=== PATIENT | female | born 1965 | race Caucasian/White ===

== ENCOUNTER 2021-05-31 16:03 | Outpatient (REF) | payer MEDICAID, SELFPAY ==
[2021-05-31 16:47] LABS: Basophils Absolute Auto 0.1 X10*3/uL (0.0-0.2); Eosinophils Absolute Auto 0.4 X10*3/uL (0.0-0.4); Eosinophils Percent Auto 4.1 % (0-4); Hematocrit 44.3 % (37-47); Hemoglobin 14.4 g/dl (12.0-16.0); Imm Gran Abs Auto 0.02 X10*3/uL (0.00-0.03); Imm Gran Pct Auto 0.2 % (0.0-0.4); Lymphocytes Absolute Auto 1.5 X10*3/uL (1.2-4.9); Lymphocytes Percent Auto 15.3 % (20-40); MANUAL DIFF FLAG NO; Mean Corpuscular HGB Conc 32.5 g/dl (31.0-35.0); Mean Corpuscular Hemoglobin 29.8 pg (27.0-33.0); Mean Corpuscular Volume 91.7 fL (80-98); Mean Platelet Volume 9.1 fL (9.4-12.3); Monocytes Absolute Auto 0.4 X10*3/uL (0.1-1.2); Monocytes Percent Auto 4.6 % (2-11); Neutrophils Absolute Auto 7.2 X10*3/uL (2.0-8.3); Neutrophils Percent Auto 74.8 % (45-73); Platelet Count 219 X10*3/uL (160-400); Red Blood Count 4.83 X10*6/uL (4.20-5.50); Red Cell Distribution Width 13.1 % (11.0-16.0); White Blood Count 9.6 X10*3/uL (4.8-10.8)
[2021-05-31 17:26] LABS: Anion Gap 13 (12-20); Blood Urea Nitrogen 18 mg/dL (9-16); Calcium 9.6 mg/dL (8.4-10.2); Carbon Dioxide 25 mmol/L (22-29); Chloride 109 mmol/L (96-108); Estimated Glomerular Filt Rate > 60; Glucose Random 131 mg/dL (60-115); Iron 48 mcg/dL (30-160); Potassium 4.1 mmol/L (3.3-5.1); Sodium 143 mmol/L (135-145)
[2021-05-31 17:38] LABS: Percent Iron Saturation 16 % (15-50); Total Iron Binding Capacity 305 mcg/dL (228-428); Unsaturated Iron Binding 257 ug/dL
[2021-05-31 17:42] LABS: Ferritin 20 ng/mL (10-250)
[2021-06-03 03:41] LABS: ~HepC Num1 0.09 S/CO (0.00-0.79); ~Hepatitis C Antibody Nonreactive (Nonreactive)
[2021-06-03 03:43] LABS: HIV AB/AG Nonreactive (Nonreactive)
== END 2021-05-31 16:04 | disposition home or self-care (01) ==
LOC: HO.LAB 16:03
PROVIDERS: PCP Internal Medicine; Visit Provider Internal Medicine
DX: Z11.4 Encounter for screening for human immunodeficiency virus [HIV] (principal); Z11.59 Encounter for screening for other viral diseases; T14.8XXA Other injury of unspecified body region, initial encounter
CPT/HCPCS: 36415; 80048; 82728; 83540; 85025; 86803; 87389

== ENCOUNTER 2021-08-23 12:23 | Emergency (ER) | payer MEDICAID, SELFPAY ==
--- NOTE | ~2021-08-23 | US_ITS ---
EXAMINATION: US VENOUS ULTRASOUND WITH DOPPLER LOWER EXTREMITY, LEFT CLINICAL INFORMATION: Calf pain. Rule out DVT. COMPARISON: None TECHNIQUE: Ultrasound of the deep veins is performed from the hip to the calf with compression sonography and color and pulse Doppler assessment. Spectral analysis with color-flow imaging is performed. FINDINGS: There is normal venous compression and respiratory variation and augmented flow. The visualized common femoral vein, superficial femoral vein, profunda femoral vein, popliteal vein, and the trifurcation region shows no evidence of deep venous thrombosis. There is no significant popliteal fossa cyst. US/US venous duplex LE LT IMPRESSION: No DVT demonstrated in the left lower extremity.
[2021-08-23 14:23] VITALS: BP 115/75; PULSE 69; RESP 18; TEMP 36.2; O2SAT 98; BMI 31.2
--- NOTE | 2021-08-23 14:38 | ED_ITS ---
HPI - Skin/Abscess/Foreign Bdy General Chief complaint: Skin/Abscess/Foreign Body Stated complaint: ?lt leg infection Time Seen by Provider: 08/23/21 14:38 History of Present Illness HPI narrative: Patient complains of a painful area that she believes is infected on the left lower leg where she had some poison shaheen and scratched it and now it is red and painful Related Data Previous Rx's Medication Instructions Recorded cephalexin 500 mg tablet 500 mg PO QID 7 Days #28 tab 08/23/21 mupirocin 2 % topical ointment 1 appl TOPICAL TID 5 Days #22 g 08/23/21 doxycycline hyclate 100 mg capsule 100 mg PO BID 7 Days #14 cap 08/27/21 Bacillus coagulans 800 million 800 cell PO DAILY #14 tab 08/28/21 cell tablet (Digestive Advantage Probiotics-Prebiotic) clindamycin HCl 150 mg capsule 150 mg PO QID 7 Days #28 cap 08/28/21 Allergies Allergy/AdvReac Type Severity Reaction Status Date / Time sulfamethoxazole AdvReac Mild DIARRHEA Verified 08/27/21 07:15 [From Bactrim] trimethoprim [From Bactrim] AdvReac Mild DIARRHEA Verified 08/27/21 07:15 cyclobenzaprine [Flexeril] AdvReac Unknown Fatigued Verified 08/27/21 07:15 ibuprofen [Motrin] AdvReac Unknown Stomach Verified 08/27/21 07:15 Upset Sulfa (Sulfonamide AdvReac Unknown Diarrhea Verified 08/27/21 07:15 Antibiotics) From Darvocet-N 100 Allergy Severe TONGUE Uncoded 08/27/21 07:15 SWELLED Darvocet A500 Allergy Unknown Angioedema Uncoded 08/27/21 07:15 From FLEXERIL AdvReac Intermediate IMMOBILITY Uncoded 08/27/21 07:15 OF LIMBS Review of Systems Review of Systems: Patient complains of red painful area on left lower leg Negatives are no fever no chills no dizziness weakness no headache no neck pain no chest pain no abdominal pain no joint pain PMFSH Past Medical History Source: nursing notes reviewed Medical History COPD (chronic obstructive pulmonary disease) Substance abuse Social History Social History Alcohol intake: never Patient Tobacco Use Status: Current everyday Tobacco user Advance Directives: No Advance Directives Information Provided: Yes Physical Exam Vital Signs: Vital Signs: Last Vital Signs Temp 97.1 F 08/23/21 14:23 Pulse 69 08/23/21 14:23 Resp 18 08/23/21 14:23 BP 115/75 08/23/21 14:23 Pulse Ox 98 08/23/21 14:23 Body Mass Index 31.2 General appearance no acute distress Head is normocephalic atraumatic Neck is supple Chest clear to auscultation bilateral Extremities is full range of motion x4 Skin exam the left lower leg has an area of redness warmth and tenderness with no lymphangitis, no fluctuance no discharge from the wound, there is also ten derness in the back of the leg but again no significant swelling and neurovascular intact distal Other extremities normal Neuro no focal motor sensory deficits Course Course Course Narrative: Ultrasound was negative and was done because she had some pain in the posterior leg so no DVT, the localized infection of the left lower leg consistent with cellulitis is treated with Keflex and mupirocin Discharge Plan Discharge Clinical Impression: Cellulitis Patient Disposition: Home, Self-Care Additional Instructions: Use antibiotic Keflex and mupirocin antibiotic cream as directed Return to ER or follow with her doctor in 3 days if not improved Return any time any worse condition or any concerns, especially spreading redness worse pain and swelling fever any sign of worsening infection The ultrasound was normal with no sign of blood clot Prescriptions: New cephalexin 500 mg tablet 500 mg PO QID 7 Days Qty: 28 RF: 0 mupirocin 2 % ointment 1 appl topical TID 5 Days Qty: 22 RF: 0 No Action doxycycline hyclate 100 mg capsule 100 mg PO BID 7 Days Qty: 14 RF: 0 clindamycin HCl 150 mg capsule 150 mg PO QID 7 Days Qty: 28 RF: 0 Digestive Advantage Probio-Pre 800 million cell tablet 800 cell PO DAILY Qty: 14 RF: 0 Interventions: ED Discharge Assessment Last Done: 08/23/21 16:06 Discharge Date/Time: 08/23/21 16:07
[2021-08-23] MEDS: cephALEXin 500 MG CAPSULE PO (15:01)
[2021-08-23] MEDS: Diphth,Pertus(ACell),Tet Adult 0.5 ML SYRINGE IM (15:02)
== END 2021-08-23 16:07 | disposition home or self-care (01) ==
PROVIDERS: Emergency Provider Emergency Medicine
DX: L03.116 Cellulitis of left lower limb (principal); M79.605 Pain in left leg; J44.9 Chronic obstructive pulmonary disease, unspecified
CPT/HCPCS: 90715; 93971; 99283; 99284

== ENCOUNTER 2021-08-27 06:52 | Emergency (ER) | payer MEDICAID, SELFPAY ==
[2021-08-27 07:07] VITALS: BP 126/75; PULSE 69; RESP 17; TEMP 36.6; O2SAT 97; BMI 29.8
--- NOTE | 2021-08-27 08:04 | ED_ITS ---
HPI - Skin/Abscess/Foreign Bdy General Chief complaint: Skin/Abscess/Foreign Body Stated complaint: leg infection Time Seen by Provider: 08/27/21 08:02 Source: patient and old records reviewed Mode of arrival: ambulatory Limitations: no limitations History of Present Illness HPI narrative: seen on 08/23 started on keflex - neg DVT study complaint: abscess/boil and lesion Onset (ago): day(s) (several ) Tetanus up to date: yes Location: LLE Severity: moderate Quality: burning and aching Pain Consistency: intermittent Relieving factors: none Exacerbating factors: palpation Context: other (?poison shaheen) Associated symptoms: denies other symptoms Treatments prior to arrival: antibiotic (tried to drain at home on keflex since 08/23 neg DVT study) Related Data Previous Rx's Medication Instructions Recorded cephalexin 500 mg tablet 500 mg PO QID 7 Days #28 tab 08/23/21 mupirocin 2 % topical ointment 1 appl TOPICAL TID 5 Days #22 g 08/23/21 doxycycline hyclate 100 mg capsule 100 mg PO BID 7 Days #14 cap 08/27/21 Allergies Allergy/AdvReac Type Severity Reaction Status Date / Time sulfamethoxazole AdvReac Mild DIARRHEA Verified 08/27/21 07:15 [From Bactrim] trimethoprim [From Bactrim] AdvReac Mild DIARRHEA Verified 08/27/21 07:15 cyclobenzaprine [Flexeril] AdvReac Unknown Fatigued Verified 08/27/21 07:15 ibuprofen [Motrin] AdvReac Unknown Stomach Verified 08/27/21 07:15 Upset Sulfa (Sulfonamide AdvReac Unknown Diarrhea Verified 08/27/21 07:15 Antibiotics) From Darvocet-N 100 Allergy Severe TONGUE Uncoded 08/27/21 07:15 SWELLED Darvocet A500 Allergy Unknown Angioedema Uncoded 08/27/21 07:15 From FLEXERIL AdvReac Intermediate IMMOBILITY Uncoded 08/27/21 07:15 OF LIMBS Review of Systems Review of Systems: Constitutional : No Fever, No Chills ENT/Mouth : No sore throat, No Rhinorrhea Eyes: No Eye Pain, No Swelling, No Redness Cardiovascular : No Chest Pain, No SOB Respiratory : No Cough, No Sputum Gastrointestinal : No Nausea, No Vomiting, No Diarrhea, No abdominal Pain Genitourinary : No Dysuria, No Hematuria Musculoskeletal : No joint pain, No Myalgias, No Joint Swelling Skin : No Skin Lesions, positive skin rash Neuro : No Weakness, No Numbness, No Headache Psych : No Anxiety, No Depression Heme/Lymph: No Bruising, No Bleeding,No Lymphadenopathy Endocrine : No Polyuria, No Polydipsia All other systems reviewed and are negative [facility] Past Medical History Attestation statement: The following information was validated with the patient. Medical History COPD (chronic obstructive pulmonary disease) Substance abuse Social History Social History Alcohol intake: never Patient Tobacco Use Status: Current everyday Tobacco user Use of substances other than those prescribed or required for medical reasons: No Advance Directives: No Patient : No Physical Exam Vital Signs: Vital Signs: Last Vital Signs Temp 97.9 F 08/27/21 07:07 Pulse 69 08/27/21 07:07 Resp 17 08/27/21 07:07 BP 126/75 08/27/21 07:07 Pulse Ox 98 08/27/21 08:06 Body Mass Index 29.8 Appearance: Alert. Oriented X3. No acute distress. Eyes: Pupils equal, round and reactive to light. ENT: Pharynx normal. Neck: Normal inspection. Neck supple. CVS: Pulses normal. Respiratory: No respiratory distress. Abdomen: Soft and nontender. Skin: Skin warm and dry. Normal skin color. LLE medial aspect eschar noted small fluctuance 1-2 non draining area with 4cm surrounding warm pink area no extension no lymphadenitis no swelling NV intact distally, compartments soft and compressible Extremities: No lower extremity edema. Neuro: Oriented X 3. No motor deficit. No sensory deficit. MDM - Skin/Abscess/Foreign Bdy MDM Narrative Medical decision making narrative: 56 yo female with hidradenitis here with LLE abscess and cellulitis without systemic symptoms refusing drainage - will start on doxy and refer to PCP, alert and oriented x 3. Discharge Plan Discharge Clinical Impression: Cellulitis, Abscess of skin or subcutaneous tissue Patient Disposition: Home, Self-Care Instructions: Cellulitis (ED), Abscess (ED) Additional Instructions: return to ED for any worsening symptoms or concerns you refused incision and drainage - this may worsen without drainage. this is not recommended. if this worsens please return at any time continue cephalexin Prescriptions: New doxycycline hyclate 100 mg capsule 100 mg PO BID 7 Days Qty: 14 RF: 0 No Action cephalexin 500 mg tablet 500 mg PO QID 7 Days Qty: 28 RF: 0 mupirocin 2 % ointment 1 appl topical TID 5 Days Qty: 22 RF: 0 Stand Alone Forms: Work/School Release
[2021-08-27 08:06] VITALS: O2SAT 98
== END 2021-08-27 08:31 | disposition home or self-care (01) ==
PROVIDERS: Emergency Provider Emergency Medicine; PCP Internal Medicine
DX: L03.116 Cellulitis of left lower limb (principal); F17.200 Nicotine dependence, unspecified, uncomplicated; Z71.6 Tobacco abuse counseling; Z79.899 Other long term (current) drug therapy
CPT/HCPCS: 99283; 99284

== ENCOUNTER 2021-08-28 18:15 | Emergency (ER) | payer MEDICAID, SELFPAY ==
[2021-08-28 18:32] VITALS: BP 184/78; PULSE 58; RESP 18; TEMP 37.4; O2SAT 99; BMI 31.6
--- NOTE | 2021-08-28 23:15 | ED.WOUNDLAC ---
HPI - Wound/Laceration General Chief Complaint: Wound/Laceration Stated Complaint: dr. millan states high bp,leg infection Time Seen by Provider: 08/28/21 23:01 Source: patient Mode of arrival: ambulatory Limitations: no limitations History of Present Illness HPI narrative: Patient comes emergency room complaining of an abscess in her left lower extremity. Patient was seen here yesterday, patient declined I&D. Patient was sent home with doxycycline in addition to cephalexin that patient was taking. Patient states that the doxycycline is making her feel very nauseous and no longer wants to take it. Patient was seen by her primary care physician today, since the abscess actually got bigger, patient is now agreeable to have it drained. Related Data Previous Rx's Medication Instructions Recorded cephalexin 500 mg tablet 500 mg PO QID 7 Days #28 tab 08/23/21 mupirocin 2 % topical ointment 1 appl TOPICAL TID 5 Days #22 g 08/23/21 doxycycline hyclate 100 mg capsule 100 mg PO BID 7 Days #14 cap 08/27/21 Bacillus coagulans 800 million 800 cell PO DAILY #14 tab 08/28/21 cell tablet (Digestive Advantage Probiotics-Prebiotic) clindamycin HCl 150 mg capsule 150 mg PO QID 7 Days #28 cap 08/28/21 Allergies Allergy/AdvReac Type Severity Reaction Status Date / Time sulfamethoxazole AdvReac Mild DIARRHEA Verified 08/27/21 07:15 [From Bactrim] trimethoprim [From Bactrim] AdvReac Mild DIARRHEA Verified 08/27/21 07:15 cyclobenzaprine [Flexeril] AdvReac Unknown Fatigued Verified 08/27/21 07:15 ibuprofen [Motrin] AdvReac Unknown Stomach Verified 08/27/21 07:15 Upset Sulfa (Sulfonamide AdvReac Unknown Diarrhea Verified 08/27/21 07:15 Antibiotics) From Darvocet-N 100 Allergy Severe TONGUE Uncoded 08/27/21 07:15 SWELLED Darvocet A500 Allergy Unknown Angioedema Uncoded 08/27/21 07:15 From FLEXERIL AdvReac Intermediate IMMOBILITY Uncoded 08/27/21 07:15 OF LIMBS Review of Systems Review of Systems: Constitutional : No Weight loss, complaining of subjective fever and chills. No Night Sweats, No Fatigue, No Malaise ENT/Mouth : No Hearing loss, No Ear Pain, No Nasal Congestion, No Sinus Pain, No Hoarseness, No sore throat, No Rhinorrhea, No Swallowing Difficulty Eyes: No Eye Pain, No Swelling, No Redness, No Foreign Body, No Discharge, No Vision Changes Cardiovascular : No Chest Pain, No SOB, No Dyspnea on Exertion, No Orthopnea, No Edema, No Palpitations Respiratory : No Cough, No Sputum, No Wheezing, No Smoke Exposure, No Dyspnea Gastrointestinal : No Nausea, No Vomiting, No Diarrhea, No Constipation, No abdominal Pain, No Hematochezia, No Melena Genitourinary : no irregular bleeding, No Dysuria, No Urinary Frequency, No Hematuria, No Urinary Incontinence, No Urgency, No Flank Pain, No Urinary Flow Changes, No Hesitancy Musculoskeletal : No joint pain, No Myalgias, No Joint Swelling Skin : Complaining of multiple healing skin lesions secondary to poison shaheen. Abscess in the left lower extremity. Neuro : No Weakness, No Numbness, No Paresthesias, No Loss of Consciousness, No Dizziness, No Headache Psych : No Anxiety/Panic, No Depression, No SI/HI/AH/VH, No Social Issues, Heme/Lymph: No Bruising, No Bleeding,No Lymphadenopathy Endocrine : No Polyuria, No Polydipsia, No Temperature Intolerance PMFSH Past Medical History Medical History COPD (chronic obstructive pulmonary disease) Substance abuse Social History Social History Alcohol intake: never Patient Tobacco Use Status: Current everyday Tobacco user Advance Directives: No Advance Directives Information Provided: Yes Physical Exam Vital Signs: Vital Signs: Last Vital Signs Temp 99.3 F 08/28/21 18:32 Pulse 58 08/28/21 18:32 Resp 18 08/28/21 18:32 BP 184/78 H 08/28/21 18:32 Pulse Ox 99 08/28/21 18:32 Body Mass Index 31.6 Const: Other: Appearance: Alert. Oriented X3. No acute distress. Eyes: Pupils equal, round and reactive to light. ENT: Pharynx normal. Neck: Normal inspection. Neck supple. No lymph nodes noted. No crepitus CVS: Normal heart rate and rhythm. Pulses normal. Normal S1 and S2 Respiratory: No respiratory distress. Breath sounds normal. No Wheezing. No rales Abdomen: Soft and nontender. No rigidity. No distention. good BS x4 Skin: Skin warm and dry. Multiple healing skin lesions from poison shaheen in upper and lower extremities, multiple excoriations. See extremity below Extremities: No lower extremity edema. Abscess in the medial aspect of the distal left lower extremity, warmth to touch, erythematous. Bedside ultrasound shows an abscess that is approximately 1 cm deep Neuro: Oriented X 3. No motor deficit. No sensory deficit. Moving all extermities. No slurred speech. Course Course Course Narrative: I discussed with the patient that we need to lift up the eschar, and likely do an I&D. Patient states that she agrees to the procedure, she does not want lidocaine. After the I&D, patient states that she feels much better. Declined IV antibiotics. Agree to switch her antibiotics clean the/Keflex to clindamycin. Patient allergic to sulfas. Patient tolerated well the procedure. Patient declined packing. Patient states that she has a follow-up appointment tomorrow with her primary care physician. Procedures Abscess I/D Site: lower extremity Side (if applicable): left Technique: incised with blade and ultrasound guided Amount of fluid expressed (mL): 3 Packing used?: none Discharge Plan Discharge Clinical Impression: Abscess Patient Disposition: Home, Self-Care Instructions: Abscess (ED) Additional Instructions: Please follow-up with your primary care physician tomorrow. If you have any worsening or new symptoms, please return to the emergency room or call 911 Prescriptions: New clindamycin HCl 150 mg capsule 150 mg PO QID 7 Days Qty: 28 RF: 0 Digestive Advantage Probio-Pre 800 million cell tablet 800 cell PO DAILY Qty: 14 RF: 0 No Action cephalexin 500 mg tablet 500 mg PO QID 7 Days Qty: 28 RF: 0 mupirocin 2 % ointment 1 appl topical TID 5 Days Qty: 22 RF: 0 doxycycline hyclate 100 mg capsule 100 mg PO BID 7 Days Qty: 14 RF: 0
[2021-08-29] MEDS: Clindamycin HCL 300 MG CAPSULE PO (00:05)
[2021-08-29] MEDS: Lidocaine HCl 2 % MPF 5 ML VIAL INFILTRATI (00:05)
== END 2021-08-29 00:09 | disposition home or self-care (01) ==
PROVIDERS: Emergency Provider Emergency Medicine; PCP Emergency Medicine
DX: L02.416 Cutaneous abscess of left lower limb (principal); J44.9 Chronic obstructive pulmonary disease, unspecified
CPT/HCPCS: 10060; 96365; 99282; 99284

== ENCOUNTER 2022-02-10 00:31 | Emergency (ER) | payer MEDICAID, SELFPAY ==
--- NOTE | 2022-02-10 01:24 | ECG_ITS ---
Test Reason : EPIGASTRIC PAIN Blood Pressure : / mmHG Vent. Rate : 054 BPM Atrial Rate : 054 BPM P-R Int : 158 ms QRS Dur : 096 ms QT Int : 432 ms P-R-T Axes : 027 055 005 degrees QTc Int : 409 ms Sinus bradycardia Otherwise normal ECG When compared with ECG of 03-APR-2015 15:58, Nonspecific T wave abnormality no longer evident in Anterior leads Referred By: Carol Gutierrez Electronically Signed By:MIKE BNONER MD
[2022-02-10 01:25] VITALS: BP 162/88; PULSE 55; RESP 20; TEMP 36.7; O2SAT 98; BMI 30.9
[2022-02-10 02:00] LABS: MANUAL DIFF FLAG NO
[2022-02-10 02:01] LABS: Basophils Absolute Auto 0.1 X10*3/uL (0.0-0.2); Basophils Percent Auto 0.8 % (0-2); Eosinophils Absolute Auto 0.5 X10*3/uL (0.0-0.4); Eosinophils Percent Auto 5.1 % (0-4); Hematocrit 42.8 % (37.0-47.0); Hemoglobin 14.2 g/dl (12.0-16.0); Imm Gran Abs Auto 0.02 X10*3/uL (0.00-0.03); Imm Gran Pct Auto 0.2 % (0.0-0.4); Lymphocytes Absolute Auto 2.9 X10*3/uL (1.2-4.9); Lymphocytes Percent Auto 30.5 % (20-40); Mean Corpuscular HGB Conc 33.2 g/dl (31.0-35.0); Mean Corpuscular Hemoglobin 30.2 pg (27.0-33.0); Mean Corpuscular Volume 91.1 fL (80.0-98.0); Mean Platelet Volume 8.9 fL (9.4-12.3); Monocytes Absolute Auto 0.8 X10*3/uL (0.1-1.2); Monocytes Percent Auto 8.5 % (2-11); Neutrophils Absolute Auto 5.1 x10*3/uL (2.0-8.3); Neutrophils Percent Auto 54.9 % (45-73); Platelet Count 239 X10*3/uL (160-400); Red Cell Distribution Width 13.2 % (11.0-16.0); White Blood Count 9.3 X10*3/uL (4.8-10.8)
[2022-02-10 02:01] LABS: Appearance Urine CLEAR; Color Urine YELLOW; Glucose Urine UA NEG (NEG); Leukocyte Esterase Urine NEG (NEG); Nitrite Urine NEG (NEG); PH 5.5 (5.0-8.0); Urine Blood NEG (NEG); Urine Ketones NEG (NEG); Urine Protein NEG (NEG-TRACE)
[2022-02-10 02:18] LABS: Alanine Aminotransferase 17 U/L (0-31); Albumin Level 4.1 g/dL (3.5-5.0); Alkaline Phosphatase 89 U/L (39-117); Anion Gap 17 (12-20); Aspartate Amino Transferase 15 U/L (5-31); Bilirubin Total 0.2 mg/dL (0.0-1.0); Blood Urea Nitrogen 17 mg/dL (9-16); Calcium 9.7 mg/dL (8.4-10.2); Carbon Dioxide 21 mmol/L (22-29); Chloride 109 mmol/L (96-108); Creatinine Clr Calc Pharmacy 91.8; Estimated Glomerular Filt Rate > 60; Glucose Random 93 mg/dL (60-115); Lipase 17 U/L (8-78); Potassium 3.8 mmol/L (3.3-5.1); Sodium 143 mmol/L (135-145); Total Protein 6.4 g/dL (6.5-8.0)
--- NOTE | 2022-02-10 02:41 | ED_ITS ---
HPI - Abdominal Pain General Chief Complaint: Abdominal Pain Stated Complaint: stomach ulcer pain; med refill Time Seen by Provider: 02/10/22 01:24 Related Data Previous Rx's Medication Instructions Recorded cephalexin 500 mg tablet 500 mg PO QID 7 Days #28 tab 08/23/21 mupirocin 2 % topical ointment 1 appl TOPICAL TID 5 Days #22 g 08/23/21 doxycycline hyclate 100 mg capsule 100 mg PO BID 7 Days #14 cap 08/27/21 Bacillus coagulans 800 million 800 cell PO DAILY #14 tab 08/28/21 cell tablet (Digestive Advantage Probiotics-Prebiotic) clindamycin HCl 150 mg capsule 150 mg PO QID 7 Days #28 cap 08/28/21 Allergies Allergy/AdvReac Type Severity Reaction Status Date / Time sulfamethoxazole AdvReac Mild DIARRHEA Verified 02/10/22 01:25 [From Bactrim] trimethoprim [From Bactrim] AdvReac Mild DIARRHEA Verified 02/10/22 01:25 cyclobenzaprine [Flexeril] AdvReac Unknown Fatigued Verified 02/10/22 01:25 ibuprofen [Motrin] AdvReac Unknown Stomach Verified 02/10/22 01:25 Upset Sulfa (Sulfonamide AdvReac Unknown Diarrhea Verified 02/10/22 01:25 Antibiotics) From Darvocet-N 100 Allergy Severe TONGUE Uncoded 02/10/22 01:25 SWELLED Darvocet A500 Allergy Unknown Angioedema Uncoded 02/10/22 01:25 From FLEXERIL AdvReac Intermediate IMMOBILITY Uncoded 02/10/22 01:25 OF LIMBS PMFSH Past Medical History Medical History COPD (chronic obstructive pulmonary disease) Substance abuse Social History Social History Alcohol intake: never Patient Tobacco Use Status: Current everyday Tobacco user Advance Directives: No Physical Exam ED Vital Signs: Vital Signs - 24 hr 02/10/22 01:25 Temperature 98.1 F Pulse Rate 55 Respiratory Rate 20 Blood Pressure 162/88 H Pulse Oximetry 98 BMI result Body Mass Index 30.9 MDM - Abdominal Pain Lab Data Result diagrams: 02/10/22 01:52 02/10/22 01:52 Labs: Lab Results 02/10/22 02/10/2202/10/22 Range/Units 01:52 01:52 01:56 WBC 9.3 (4.8-10.8) X10*3/uL RBC 4.70 (4.20-5.50) X10*6/uL Hgb 14.2 (12.0-16.0) g/dl Hct 42.8 (37.0-47.0) % MCV 91.1 (80.0-98.0) fL MCH 30.2 (27.0-33.0) pg MCHC 33.2 (31.0-35.0) g/dl RDW 13.2 (11.0-16.0) % Plt Count 239 (160-400) X10*3/uL MPV 8.9 L (9.4-12.3) fL Immature Gran % (Auto) 0.2 (0.0-0.4) % Neut % (Auto) 54.9 (45-73) % Lymph % (Auto) 30.5 (20-40) % [place] % (Auto) 8.5 (2-11) % Eos % (Auto) 5.1 H (0-4) % Baso % (Auto) 0.8 (0-2) % Lymph # (Auto) 2.9 (1.2-4.9) X10*3/uL [place] # (Auto) 0.8 (0.1-1.2) X10*3/uL Eos # (Auto) 0.5 H (0.0-0.4) X10*3/uL Baso # (Auto) 0.1 (0.0-0.2) X10*3/uL Abs Immat Gran (auto) 0.02 (0.00-0.03) X10*3/uL Absolute Neuts (auto) 5.1 (2.0-8.3) x10*3/uL Absolute Nucleated RBC 0.000 (0.0-0.012) X10*3/uL Nucleated RBC % (auto) 0.0 (0.0-0.2) /100WBC Sodium 143 (135-145) mmol/L Potassium 3.8 (3.3-5.1) mmol/L Chloride 109 H (96-108) mmol/L Carbon Dioxide 21 L (22-29) mmol/L Anion Gap 17 (12-20) BUN 17 H (9-16) mg/dL Creatinine 0.69 (0.5-1.4) mg/dL Estim Creat Clear Calc 91.8 Estimated GFR > 60 Random Glucose 93 (60-115) mg/dL Calcium 9.7 (8.4-10.2) mg/dL Total Bilirubin 0.2 (0.0-1.0) mg/dL AST 15 (5-31) U/L ALT 17 (0-31) U/L Alkaline Phosphatase 89 (39-117) U/L Total Protein 6.4 L (6.5-8.0) g/dL Albumin 4.1 (3.5-5.0) g/dL Lipase 17 (8-78) U/L Urine Color YELLOW Urine Appearance CLEAR Urine pH 5.5 (5.0-8.0) Ur Specific [place] 1.020 (1.005-1.025) Urine Protein NEG (NEG-TRACE) MG/DL Urine Glucose (UA) NEG (NEG) MG/DL Urine Ketones NEG (NEG) MG/DL Urine Blood NEG (NEG) Urine Nitrite NEG (NEG) Ur Leukocyte Esterase NEG (NEG) Discharge Plan Discharge Prescriptions: No Action cephalexin 500 mg tablet 500 mg PO QID 7 Days Qty: 28 0RF mupirocin 2 % ointment 1 appl topical TID 5 Days Qty: 22 0RF doxycycline hyclate 100 mg capsule 100 mg PO BID 7 Days Qty: 14 0RF clindamycin HCl 150 mg capsule 150 mg PO QID 7 Days Qty: 28 0RF Digestive Advantage Probio-Pre 800 million cell tablet 800 cell PO DAILY Qty: 14 0RF
[2022-02-10] MEDS: Omeprazole 20 MG CAPSULE.DR PO (03:11)
== END 2022-02-10 04:25 | disposition left against medical advice (07) ==
PROVIDERS: Emergency Provider Student in an Organized Health Care Education/Training Program; PCP Internal Medicine
DX: K25.9 Gastric ulcer, unspecified as acute or chronic, without hemorrhage or perforation (principal); R10.13 Epigastric pain; R00.1 Bradycardia, unspecified; Z79.899 Other long term (current) drug therapy
CPT/HCPCS: 36415; 80053; 81003; 83690; 85025; 93005; 99283

== ENCOUNTER 2023-04-17 21:55 | Emergency (ER) | payer MEDICAID, SELFPAY ==
[2023-04-17 23:21] VITALS: BP 151/91; PULSE 74; RESP 18; TEMP 36.6; O2SAT 99; BMI 23.2
== END 2023-04-17 23:48 | disposition left against medical advice (07) ==
PROVIDERS: Emergency Provider Emergency Medicine; PCP Internal Medicine
DX: R09.81 Nasal congestion (principal)
CPT/HCPCS: 99281

== ENCOUNTER 2023-07-16 17:53 | Outpatient (REF) | payer MEDICAID, SELFPAY ==
[2023-07-16 18:58] LABS: Influenza A PCR NEGATIVE (Negative); Influenza B PCR NEGATIVE (Negative); Resp Syncy Virus RNA Qual PCR NEGATIVE (Negative); SARS COV2 PCR INHOUSE NEGATIVE (Negative)
== END 2023-07-16 17:54 | disposition home or self-care (01) ==
LOC: HO.HHCLNP 17:53
PROVIDERS: Visit Provider Family Medicine
DX: J06.9 Acute upper respiratory infection, unspecified (principal); Z20.822 Contact with and (suspected) exposure to COVID-19
CPT/HCPCS: 0241U

== ENCOUNTER 2023-07-21 13:13 | Outpatient (REF) | payer MEDICAID, SELFPAY ==
--- NOTE | ~2023-07-21 | XR_ITS ---
EXAMINATION: XR CHEST CLINICAL INFORMATION: 7 day duration of cough Chest pain, cough, shortness of breath COMPARISON: Chest 12/04/2015 TECHNIQUE: 2 views of the chest were obtained. FINDINGS: No significant abnormality is noted involving the heart, lungs, mediastinum or soft tissues. Thoracolumbar scoliosis is noted. XR/XR chest 2V IMPRESSION: No acute cardiopulmonary disease.
== END 2023-07-21 13:14 | disposition home or self-care (01) ==
LOC: HO.XRAY 13:13
PROVIDERS: PCP Internal Medicine; Visit Provider Family Medicine
DX: J06.9 Acute upper respiratory infection, unspecified (principal)
CPT/HCPCS: 71046

== ENCOUNTER 2024-10-18 12:15 | Outpatient (REF) | payer MEDICAID, SELFPAY ==
--- NOTE | ~2024-10-18 | XR_ITS ---
EXAMINATION: XR CHEST CLINICAL INFORMATION: cough and SOB, COVID+, r/o PNA COMPARISON: Most recent chest radiograph dated 07/21/2023. TECHNIQUE: 2 views of the chest were obtained. FINDINGS: The lungs are clear. The cardiomediastinal silhouette is normal in size. There is no pleural effusion or pneumothorax. No acute osseous abnormality. XR/XR chest 2V IMPRESSION: No acute cardiopulmonary findings. Electronically signed by: Rusty Lara MD 10/18/2024 04:26 PM [facility]
== END 2024-10-18 12:16 | disposition home or self-care (01) ==
LOC: HO.HHCX 12:15
PROVIDERS: Visit Provider Family Medicine
DX: U07.1 COVID-19 (principal); R05.9 Cough, unspecified; R06.02 Shortness of breath
CPT/HCPCS: 71046

== ENCOUNTER 2024-11-15 10:34 | Outpatient (REF) | payer MEDICAID, SELFPAY ==
--- NOTE | ~2024-11-15 | XR_ITS ---
EXAMINATION: XR CHEST CLINICAL INFORMATION: worseining cough and congestion in pt with COPD COMPARISON: 10/18/2024. 07/21/2023. TECHNIQUE: 2 views of the chest were obtained. FINDINGS: The cardiac, hilar, and mediastinal contours are normal. The lungs are clear bilaterally. There is no pneumothorax or pleural effusion. There is no focal osseous or soft tissue abnormality. There are spinal degenerative changes with a levoconvex lumbar scoliosis. XR/XR chest 2V IMPRESSION: No active pulmonary disease. Electronically signed by: Buck Shaver MD 11/15/2024 12:03 PM REVA
--- OUTSIDE RECORDS SUMMARY | 2024-11-15 11:56 | XMS_ITS | Encounter Summary ---
Author Organization [employer] Address [address] [place] [address] Care Team Providers Care Stereotype Caster Name Role Phone Minerva Gputa MD Primary Care Provider [phone] Reason for Visit * Reason Comments Cough Encounter Details Date Type Department Care Team ([facility] st Contact Info) Description 11/15/2024 10:40 AM EST Office Visit [facility] [address] [place], [place] [id number] COPD exacerbation (CMS/HCC) (Primary Dx); Cough in adult patient Social History Tobacco Use Types Packs/Day Years Used Date Smoking Tobacco: Every Day Cigarettes Cigars Passive Smoke Exposure: Current Smokeless Tobacco: Never Depression Answer Date Recorded Patient Health Questionnaire-9 Score 0 10/16/2023 Patient Health Questionnaire-9 Score 0 10/16/2023 Last PHQ-9: Questionnaire Data Not on file 1 12/17/2022 Housing Stability Answer Date Recorded What is your housing situation today? I have housing today, but I am worried about losing housing in the future 12/01/[address] you li ve. Do you have problems with any of the following? Water leaks;Pests such as bugs, ants, or mice 12/01/2023 Food Insecurity Answer Date Recorded Within the past 12 months, y ou worried that your food would run out before you got money to buy more: Often true 12/01/2023 Within the past 12 months,th e food you bought just didn't last and you didn't have enough money to get more: Often true 03/2024 Transportation Answer Date Recorded In the past 12 months, has l ack of transportation kept you from medical appts, meetings, work or from getting things needed for daily living? No 08/12/2023 Utilities Answer Date Recorded In the past 12 months, has t he electric, gas, oil or water company threatened to shut off services in your home? No 08/12/2023 Depression Answer Date Recorded Patient Health Questionnaire-2 Score 0 10/16/2023 Comments Unknown Sex and Gender Information Value Date Recorded Sex Assigned at Female 08/25/2022 10:17 AM EDT Legal Sex Female 10:17 AM EDT Gender Identity Female 08/25/2022 10:17 AM EDT Sexual Orientation Straight 08/25/2022 10 :17 AM EDT documented as of this encounter Last Filed Vital Signs Vital Sign Reading Time Taken Comments Blood Pressure 147/89 11/15/2024 10:13 AM EST Pulse 69 11/15/2024 10:13 AM EST Temperature 36.7 ??C (98.1 ??F) 11/15/2024 10:[address] Respiratory Rate 18 11/15/2024 10:13 AM EST Oxygen Saturation 98% 11/15/2024 10:13 AM EST Inhaled Oxygen Concentration - - Weight 68 kg (150 lb) 11/15/2024 10:13 AM EST Height - - Body Mass Index 26.57 10/18/2024 11:35 AM EST documented in this encounter Miscellaneous Notes * Assessment & Plan Note - Columba Archibald MA - 11/15/2024 10:49 AM EST Associated Problem(s): Cough in adult patient - Ordered XR Chest 2 Views 11/15/24 - ER precautions discussed. 11/15/24 - Seek medical attention for worsening symptoms. 11/15/24 * Assessment & Plan Note - Columba Archibald MA - 11/15/2024 10:38 AM EST Associated Problem(s): COPD exacerbation (CMS/HCC) - Prescribed predniSONE (Deltasone) 20 MG tablet 11/15/24 - ER precautions discussed. 11/15/24 - Seek medical attention for worsening symptoms. 11/15/24 documented in this encounter Plan of Treatment Scheduled Orders Name Type Priority Associated Diagnoses Orde r Schedule XR Chest 2 Views Imaging Routine Cough in adult patient Expected: 11/15/2024, Expires: 11/15/2025 documented as of this encounter Procedures Procedure Name Priority Date/Time Associated Diagnosis Comments POCT INFLUENZA B (ID NOW RAPID MOLECULAR) Routine 11/15/2024 10:16 AM EST Cough in adult patient POCT INFLUENZA A (ID NOW RAPID MOLECULAR) Routine 11/15/2024 10:16 AM EST Cough in adult patient POCT RAPID COVID ANTIGEN Routine 11/15/2024 10:15 AM EST Cough in adult patient documented in this encounter Results * Influenza B (ID NOW Rapid Molecular) (11/15/2024 10:16 AM EST) [facility] Influenza B Negative Negative, Indeterminate [facility] Swab 11/15/2024 10:1 6 AM EST Anastasia Worthington MD POINT OF CARE TEST ENTER/E DIT ORDERABLES Final Result Performing Organization Address [facility] Co de Phone Number [facility] [address] [place] [phone] * Influenza A (ID NOW Rapid Molecular) (11/15/2024 10:16 AM EST) [facility] Influenza A Negative Negative, Indeterminate [facility] Swab 11/15/2024 10:1 6 AM EST Anastasia Worthington MD POINT OF CARE TEST ENTER/E DIT ORDERABLES Final Result Performing Organization Address [facility] Co de Phone Number [facility] [address] [place] [phone] * POCT Rapid COVID Ag (11/15/2024 10:15 AM EST) Rapid COVID Ag Negative Swab 11/15/2024 10:1 5 AM EST Anastasia Worthington MD POINT OF CARE TEST ENTER/E DIT ORDERABLES Final Result documented in this encounter Visit Diagnoses Diagnosis COPD exacerbation (CMS/[facility])- Primary Obstructive chronic bronchitis with exacerbation Cough in adult patient documented in this encounter Additional Health Concerns Assessment Noted Time PHQ-9 Depression Total Score: 0 10/16/20 23 2:20 PM EST documented as of this encounter Care Teams Stereotype Caster Relationship Specialty Start Date End Date Minerva Gupta MD [address] [place] [phone] PCP - General Internal Medicine 03/28/20 documented as of this encounter
--- OUTSIDE RECORDS SUMMARY | 2024-11-15 11:56 | XMS_ITS | Encounter Summary ---
Author Organization [employer] Address [address] [place] [address] Care Team Providers Care Gerontological Nurse Practitioner Name Role Phone Minerva Gupta MD Primary Care Provider [phone] Reason for Visit * Reason Onset Date Comments Nurse Triage 10/06/2023 Encounter Details Date Type Department Care Team ([facility] st Contact Info) Description 10/06/2023 Telephone [facility] [address] [place] [address] Minerva Gupta MD [address] [place] [address] Nurse Triage Social History Tobacco Use Types Packs/Day Years Used Date Smoking Tobacco: Every Day Cigarettes Cigars Passive Smoke Exposure: Current Smokeless Tobacco: Never Depression Answer Date Recorded Patient Health Questionnaire-9 Score 0 01/27/2023 Housing Stability Answer Date Recorded What is your housing situation today? I have yashvarinder garcia 08/12/[address] you li ve. Do you have problems with any of the following? Inadequate heat 08/12/2023 Food Insecurity Answer Date Recorded Within the past 12 months, y ou worried that your food would run out before you got money to buy more: Never True 08/12/2023 Within the past 12 months,th e food you bought just didn't last and you didn't have enough money to get more: Never True Transportation Answer Date Recorded In the past 12 months, has l ack of transportation kept you from medical appts, meetings, work or from getting things needed for daily living? No 08/12/2023 Utilities Answer Date Recorded In the past 12 months, has t he [employer], [employer], oil or water [email or web address] threatened to shut off services in your home? No 08/12/2023 Depression Answer Date Recorded Patient Health Questionnaire-2 Score 0 01/27/2023 Comments Unknown Sex and Gender Information Value Date Recorded Sex Assigned at Female 08/25/2022 10:17 AM EDT Legal Sex Female 10:17 AM EDT Gender Identity Female 08/25/2022 10:17 AM EDT Sexual Orientation Straight 08/25/2022 10 :17 AM EDT documented as of this encounter Miscellaneous Notes * Telephone Encounter - Denise Mejia RN - 10/06/2023 9:48 AM EST Triage call Pt reports exposure to relative with RSV 3 days ago. Pt has developed symptoms of headache, no taste, cough with production of almanza-greenish sticky sputum after nebulizer treatment, low grade fever. Pt is using hand held nebulizer , albuterol 108 as prescribed and nebulizer with good effect. Pt reports some wheezing present and difficulty breathing at night until uses nebulizer. Pt reports I feel awful . Pt tested neg for Covid at home. Pt is advised to come to [facility] to be seen by provider and Pt agrees with disposition. Home care reviewed, increase liquid intake adding warm drinks, humidifier or steamy shower air for cough. Honey 1-2 tsp for cough as well . Pt agreed with home care advised. Protocol Used: Cough (Adult) Protocol-Based Disposition: See in Office or Video Visit Today Video visit not offered Positive Triage Questions: * Severe coughing spells (e.g., whooping sound after coughing, vomiting after coughing) * Fever present > 3 days (72 hours) * Known COPD or other severe lung disease (i.e., bronchiectasis, cystic fibrosis, lung surgery) andworsening symptoms (i.e., increased sputum purulence or amount, increased breathing difficulty)
* All higher-acuity triage questions were negative Care Advice Discussed: * Reassurance and Education - Cough * Cough Medicines * Cough Syrup With Dextromethorphan * Coughing Spells * Prevent Dehydration * Humidifier * Fever Medicines * Reasons To Call Back - Difficulty breathing - Cough lasts more than 3 weeks - Fever lasts more than 3 days - You become worse * Telephone Encounter - Petey Jean - 10/06/2023 9:27 AM EST Symptom: Headache Outcome: Schedule an urgent appointment (within 4 hours) or talk to a nurse or provider soon Reason: Getting worse, cough, chills EXPOSED to RSV. The caller accepted this outcome Please contact at [phone] documented in this encounter Plan of Treatment Not on file documented as of this encounter Visit Diagnoses Not on filedocumented in this encounter Additional Health Concerns Assessment Noted Time PHQ-9 Depression Total Score: 0 01/28/20 23 10:41 AM EDT documented as of this encounter Care Teams Gerontological Nurse Practitioner Relationship Specialty Start Date End Date Minerva Gupta MD [address] [place] [phone] PCP - General Internal Medicine 03/28/20 documented as of this encounter
--- OUTSIDE RECORDS SUMMARY | 2024-11-15 11:56 | XMS_ITS | Encounter Summary ---
Author Organization [employer] Address [address] [place] [address] Care Team Providers Care Traffic Control Officer Name Role Phone Minerva Gupta MD Primary Care Provider [phone]- [phone] Reason for Visit * Reason Onset Date Comments FYI 06/13/2024 Encounter Details Date Type Department Care Team ([facility] st Contact Info) Description 06/13/2024 Telephone [facility] [address] [place] [address] Minerva Gupta MD [address] [place] [address] FYI Social History Tobacco Use Types Packs/Day Years [...] encounter Miscellaneous Notes * Telephone Encounter - Palmer Brunson - 06/13/2024 11:22 AM EDT Tc from pt calling to inform pcp that [facility] from [facility] was able to send form to medical records regarding 2 bedroom apartment for him to fill out. If any questions you can contact pt at [phone] documented in this encounter Plan of Treatment Not on file documented as of this encounter Visit Diagnoses Not on filedocumented in this encounter Additional Health Concerns Assessment Noted Time PHQ-9 Depression Total Score: 0 10/16/20 23 2:20 PM EST documented as of this encounter Care Teams Traffic Control Officer Relationship Specialty Start Date End Date Minerva Gupta MD [address] [place] [phone] PCP - General Internal Medicine 03/28/20 documented as of this encounter
--- OUTSIDE RECORDS SUMMARY | 2024-11-15 11:56 | XMS_ITS | Encounter Summary ---
Author Organization [employer] Address [address] [place] [address] Care Team Providers Care Immunochemist Name Role Phone Minerva Gupta MD Primary Care Provider [phone]- [phone] Reason for Visit * Reason Comments Cough Encounter Details Date Type Department Care Team ([facility] st Contact Info) Description 11/02/2024 4:20 PM EST Office Visit [facility] [address] [place] [address] Komal Soares MD [address] [place] [address] Acute bronchitis, unspecified organism (Primary Dx) Social History Tobacco Use Types Packs/Day Years [...] Sign Reading Time Taken Comments Blood Pressure 158/87 11/02/2024 3:21 PM EST Pulse 78 11/02/2024 3:21 PM EST Temperature 36.7 ??C (98.1 ??F) 11/02/2024 3:21 PM ES T Respiratory Rate 18 11/02/2024 3:21 PM EST Oxygen Saturation 98% 11/02/2024 3:21 PM EST Inhaled Oxygen Concentration - - Weight 67.6 kg (149 lb) 11/02/2024 3:21 PM EST Height - - Body Mass Index 26.39 10/18/2024 11:35 AM EST documented in this encounter Progress Notes * Komal Soares MD - 11/02/2024 4:20 PM EST Subjective Patient ID: Alyson Marcus is a 59 y.o. female who presents for No chief complaint on file.. Cough This is a recurrent problem. The current episode started in the past 7 days. The problem has been unchanged. The problem occurs constantly. The cough is Productive of sputum. Associated symptoms include headaches, nasal congestion, postnasal drip, rhinorrhea and wheezing. Pertinent negatives include no chest pain, chills, ear congestion, ear pain or fever. The symptoms are aggravated by cold air and lying down. She has tried a beta-agonist inhaler for the symptoms. Her past medical history is significant for COPD. Review of Systems Constitutional: Negative for chills and fever. HENT: Positive for postnasal drip and rhinorrhea. Negative for ear pain. Respiratory: Positive for cough and wheezing. Cardiovascular: Negative for chest pain. Neurological: Positive for headaches. Objective Physical Exam Constitutional: Appearance: Normal appearance. Cardiovascular: Rate and Rhythm: Normal rate and regular rhythm. Pulses: Normal pulses. Heart sounds: Normal heart sounds. Pulmonary: Effort: Pulmonary effort is normal. Breath sounds: Decreased air movement present. Decreased breath sounds present. Neurological: Mental Status: She is alert. Assessment/Plan Diagnoses and all orders for this visit: Acute bronchitis, unspecified organism Comments: Started on Prednisone 40mg daily for 5 days and Zithromax for 5 days Advised to cont neb every 6 hrs Cont Inhalers Advised steam inhaltion and warm water gargles.Supportive trt with Mucinex and warm tea Other orders - predniSONE (Deltasone) 20 MG tablet; Take 2 tablets (40 mg) by mouth Once per day for 5 days. - azithromycin (Zithromax Z-Robert) 250 MG tablet; Take 2 tabs day 1 and then 1 tab daily to finish documented in this encounter Plan of Treatment Not on file documented as of this encounter Visit Diagnoses Diagnosis Acute bronchitis, unspecified organism- Primary documented in this encounter Additional Health Concerns Assessment Noted Time PHQ-9 Depression Total Score: 0 10/16/20 23 2:20 PM EST documented as of this encounter Care Teams Immunochemist Relationship Specialty Start Date End Date Minerva Gupta MD [address] [place] [phone] PCP - General Internal Medicine 03/28/20 documented as of this encounter
--- OUTSIDE RECORDS SUMMARY | 2024-11-15 11:56 | XMS_ITS | Encounter Summary ---
Author Organization [employer] Address [address] [place] [address] [address] [place] [address] Care Team Providers Care Woodworking Machine Offbearer Name Role Phone Minerva Gupta MD Primary Care Provider [phone]- [phone] Encounter Details Date Type Department Care Team (Latest Contact Info) Description 06/25/2022 [facility] Dental, Provider, DDS Social History Tobacco Use Types Packs/Day Years Used Date Smoking Tobacco: Never Assessed Comments Unknown Sex and Gender Information Value Date Recorded Sex Assigned at Female 08/25/2022 10:17 AM EDT Legal Sex Female 10:17 AM EDT Gender Identity Female 08/25/2022 10:17 AM EDT Sexual Orientation Straight 08/25/2022 10 :17 AM EDT documented as of this encounter Plan of Treatment Not on file documented as of this encounter Visit Diagnoses Not on filedocumented in this encounter Care Teams Woodworking Machine Offbearer Relationship Specialty Start Date End Date Minerva Gupta MD [address] [place] [phone] PCP - General Internal Medicine 03/28/20 documented as of this encounter
--- OUTSIDE RECORDS SUMMARY | 2024-11-15 11:56 | XMS_ITS | Encounter Summary ---
Author Organization [employer] Address [address] [facility] [address] [place] [address] Care Team Providers Care Medical Transcriptionist Name Role Phone Minerva Gupta MD Primary Care Provider [phone] Reason for Visit * Reason Comments Nasal Congestion Encounter Details Date Type Department Care Team ([facility] st Contact Info) Description 10/18/2024 11:40 AM EST Office Visit [facility] [address] [place] [address] Columba Ward DO [address] [place] [address] COVID-19 (Primary Dx) Social History Tobacco Use Types Packs/Day Years Used Date Smoking Tobacco: Every Day Cigarettes Cigars Passive Smoke Exposure: Current Smokeless Tobacco: Never Tobacco Cessation:Ready to Q uit: Not Asked; Counseling Given: Not Answered Depression Answer Date Recorded Patient Health Questionnaire-9 [...] Sign Reading Time Taken Comments Blood Pressure 177/83 10/18/2024 11:35 AM EST Pulse 55 10/18/2024 11:35 AM EST Temperature 36.6 ??C (97.9 ??F) 10/18/2024 11:[address] Respiratory Rate 20 10/18/2024 11:35 AM EST Oxygen Saturation 97% 10/18/2024 11:35 AM EST Inhaled Oxygen Concentration - - Weight 66.4 kg (146 lb 6.4 oz) 10/18/2024 11:35 AM EST Height 160 cm (5' 3 ) 10/18/2024 11:35 AM EST Body Mass Index 25.93 10/18/2024 11:35 AM EST documented in this encounter Progress Notes * Columba Ward, DO - 10/18/2024 11:40 AM EST SUBJECTIVE Alyson Marcus is a 59 y.o. female who presents for Sick Visit. She comes to [place] c/o chest congestion. She says she tested positive for COVID with a home test 10 days ago but never came in for treatment. She says that she started to feel better and tested negativewith a home test on Thursday. She says her FENG has resolved but she still can't taste anything. Her main concern is her congestion. She says that everything has moved into her chest. She has had a lot of wheezing. She has albuterol pump and nebulizer, which she has been using regularly. History provided by: Patient rac specialist used: No Cough The current episode started 1 to 4 weeks ago. The problem has been gradually worsening. Associated symptoms include postnasal drip, a sore throat and wheezing. Pertinent negatives include no chest pain, chills, ear pain, fever, headaches, nasal congestion, rhinorrhea or shortness of breath. She hastried a beta-agonist inhaler for the symptoms. The treatment provided mild relief. Her past medicalhistory is significant for COPD. Review of Systems Constitutional: Negative for activity change, appetite change, chills, fever and unexpected weight change. HENT: Positive for congestion, postnasal drip and sore throat. Negative for ear pain and rhinorrhea. Respiratory: Positive for cough and wheezing. Negative for shortness of breath. Cardiovascular: Negative for chest pain, palpitations and leg swelling. Gastrointestinal: Negative for abdominal pain, diarrhea, nausea and vomiting. Neurological: Negative for weakness and headaches. 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[facility]) Migraine Costal chondritis Low back pain Panic disorder Posttraumatic stress disorder Seizure disorder ([facility]) Stress incontinence of urine Substance abuse ([facility]) Tobacco dependence syndrome Acute non-recurrent maxillary sinusitis Elevated blood pressure reading Blurry vision, bilateral Allergies Allergen Reactions Amoxicillin-Pot Clavulanate Other reaction(s): DIARRHEA Chlorophyllin Copper Cyclobenzaprine Other reaction(s): coma-like state Pantoprazole Pt states allergy - Though also states she is waiting on prior auth for prilosec from PCP Sulfamethoxazole Sulfamethoxazole-Trimethoprim Other reaction(s): VOMMITTING AND DIARRHEA Trimethoprim Doxycycline Rash OBJECTIVE Vitals: 10/18/24 1135 BP: (!) 177/83 BP Location: Left arm Patient Position: Sitting BP Cuff Size: Adult Pulse: 55 Resp: 20 Temp: 97.9 ??F (36.6 ??C) TempSrc: Oral SpO2: 97% Weight: 146 lb 6.4 oz (66.4 kg) Height: 5' 3 (1.6 m) Physical Exam Constitutional: General: She is not in acute distress. Appearance: Normal appearance. HENT: Right Ear: Tympanic membrane, ear canal and external ear normal. Left Ear: Tympanic membrane, ear canal and external ear normal. Mouth/Throat: Pharynx: Posterior oropharyngeal erythema present. No oropharyngeal exudate. Cardiovascular: Rate and Rhythm: Normal rate and regular rhythm. Heart sounds: Normal heart sounds. No murmur heard. Pulmonary: Effort: Pulmonary effort is normal. No accessory muscle usage or respiratory distress. Breath sounds: Decreased air movement present. Examination of the right-upper field reveals wheezing. Examination of the left-upper field reveals wheezing. Examination of the right-middle field reveals wheezing. Examination of the left- middle field reveals wheezing. Examination of the right-lower field reveals wheezing. Examination of the left-lower field reveals wheezing. Wheezing present. No rhonchi. Musculoskeletal: Cervical back: Normal range of motion. No tenderness. Lymphadenopathy: Cervical: No cervical adenopathy. Neurological: General: No focal deficit present. Mental Status: She is alert. Psychiatric: Mood and Affect: Mood normal. Assessment/Plan Diagnoses and all orders for this visit: COVID-19 -advised pt she is past period for treatment with paxlovid -provided reassurance -encouraged supportive care measures -advised stay well-hydrated -referred for CXR to r/o PNA -treat with prednisone daily x 5 days -trial zyrtec and nasacort daily -trial tessalon pearles prn cough -encouraged motrin/tylenol prn -encouraged mucinex prn -cont albuterol inhaler as needed -advised contact HHC or go to ED if no improvement or sx worsen --Follow-up with PCP as scheduled or sooner prn-- Current Outpatient Medications: Acetaminophen Extra Strength 500 MG tablet, Take 500 mg by mouth every 8 (eight) hours if needed (Joint pain)., Disp: 90 tablet, Rfl: 3 albuterol (2.5 MG/3ML) 0.083% nebulizer solution, Inhale 3 mL every 4 (four) hours., Disp: , Rfl: albuterol 108 (90 Base) MCG/ACT inhaler, Inhale 2 puffs every 6 (six) hours if needed for wheezing or shortness of breath., Disp: 18 g, Rfl: 1 benzonatate (Tessalon Perles) 100 MG capsule, Take 1 capsule (100 mg) by mouth if needed in the morning, at noon, and at bedtime for cough for up to 10 days. Do not crush or chew., Disp: 30 capsule, Rfl: 0 Blood Pressure kit, To check the BP every other day, Disp: 1 kit, Rfl: 0 Blood Pressure Monitor kit, 1 Device in the morning., Disp: 1 kit, Rfl: 0 cetirizine (ZyrTEC) 10 MG tablet, Take 1 tablet (10 mg) by mouth Once per day., Disp: 30 tablet, Rfl: 3 Earwax Removal 6.5 % otic solution, ADMINISTER 3-5 DROPS INTO AFFECTED EAR S) TWO TIMES A DAY FOR 4DAYS, Disp: , Rfl: guaiFENesin (Mucinex) 600 MG 12 hr tablet, Take 1 tablet (600 mg) by mouth if needed in the morningand at bedtime for cough. Do not crush, chew, or split., Disp: 30 tablet, Rfl: 1 naloxone (Narcan) 4 mg/0.1 mL nasal spray, ADMINISTER 1 SPRAY INTO ONE NOSTRIL. CALL 911. REPEAT AFTER 2-3 MIN IF NO OR MINIMAL RESPONSE, Disp: , Rfl: nicotine (Nicoderm CQ) 21 MG/24HR patch, Place 1 patch on the skin 1 (one) time each day at the same time., Disp: 42 patch, Rfl: 0 nicotine polacrilex (Nicotine Mini) 2 MG lozenge, Dissolve 1 lozenge (2 mg) in the mouth every 2 (two) hours if needed for smoking cessation., Disp: 100 lozenge, Rfl: 0 omeprazole (PriLOSEC) [address] capsule, TAKE 1 CAPSULE BY MOUTH TWICE A DAY BEFORE A MEAL, Disp: 180 capsule, Rfl: 1 omeprazole (PriLOSEC) [address] capsule, TAKE 2 CAPSULES BY MOUTH BEFORE BREAKFAST (DO NOT CRUSH OR CHEW), Disp: 180 capsule, Rfl: 3 omeprazole OTC (PriLOSEC OTC) 20 MG EC tablet, TAKE 1 TABLET BY MOUTH TWICE A DAY. DO NOT CRUSH, CHEW, OR SPLIT. NO SUBSTITUTIONS. PLEASE PROVIDE PRILOSEC NOT THE GENERIC., Disp: 180 tablet, Rfl: 3 predniSONE (Deltasone) 20 MG tablet, Take 3 tablets (60 mg) by mouth Once per day for 5 days., Disp: 15 tablet, Rfl: 0 Suboxone 8-2 MG SL film, PLACE TWO FILMS UNDER THE TONGUE EVERY DAY, Disp: , Rfl: triamcinolone (Nasacort) 55 MCG/ACT nasal inhaler, Administer 2 sprays into each nostril Once per day., Disp: 16.5 g, Rfl: 3 Scribe Attestation: Luis Hale, am serving as a scribe to document services personally performed by Columba Nguyễn, based on the patient's response to questions by provider and provider's statements to me. 10/18/24 1:04 PM Physicians Attestation: Columba Hale DO, have reviewed the information by the scribe, Luis Gomez, for accuracy and agree with its content. documented in this encounter Plan of Treatment Not on file documented as of this encounter Procedures Procedure Name Priority Date/Time Associated Diagnosis Comments POCT INFLUENZA B (ID NOW RAPID MOLECULAR) Routine 10/18/2024 12:23 PM EST COVID-19 POCT INFLUENZA A (ID NOW RAPID MOLECULAR) Routine 10/18/2024 12:23 PM EST COVID-19 POCT RAPID COVID ANTIGEN Routine 10/18/2024 12:23 PM EST COVID-19 XR CHEST 2 VIEWS STAT 10/18/2024 12:1 6 PM EST COVID-19 documented in this encounter Results * Influenza B (ID NOW Rapid Molecular) (10/18/2024 12:23 PM EST) Influenza B Negative Negative, Indeterminate [facility] Swab 10/18/2024 12:2 3 PM EST us Columba Ward DO POINT OF CARE TEST ENTER/ORESTES T ORDERABLES Final Result [facility] [address] [place] [address] [phone] * Influenza A (ID NOW Rapid Molecular) (10/18/2024 12:23 PM EST) Pathologist [facility] Influenza A Negative Negative, Indeterminate [facility] Swab 10/18/2024 12:2 3 PM EST Columba Ward DO POINT OF CARE TEST ENTER/ORESTES T ORDERABLES Final Result Performing Organization Address [facility] Co de Phone Number [facility] [address] [place] [address] [phone] * (ABNORMAL) POCT Rapid COVID Ag (10/18/2024 12:23 PM EST) Pathologist [facility] Rapid COVID Ag Positive [facility] Swab 10/18/2024 12:2 3 PM EST Columba Ward DO POINT OF CARE TEST ENTER/ORESTES T ORDERABLES Final Result Performing Organization Address [facility] de Phone Number [facility] [address] [place] [address] [phone] * XR Chest 2 Views (10/18/2024 12:16 PM EST) Anatomical Region Laterality Modality Chest Radiographic Fartun ging 10/18/2024 12:1 6 PM EST Narrative 10/18/2024 4:29 PM EST ?[facility] ?[address] ?[place] [address] ?XRay Report ? Signed ? Patient: Alyson Marcus ?MR#: [id number] ?? [id number] ? : 1965 ?Acct:[id number] ? Age/Sex: 59 / F ?ADM Date: 12/24/24 ? Loc: HO.HHCX ? Attending Dr: Columba Ward DO ? Ordering Physician: Cloumba Ward DO ?? Date of Service: 10/18/24 ?? Procedure(s): XR chest 2V ?? Accession Number(s): [id number] ? cc: Columba Ward DO ? EXAMINATION: ?? XR CHEST ? CLINICAL INFORMATION: ?? cough and SOB, COVID+, r/o PNA ? COMPARISON: ?? Most recent chest radiograph dated 07/21/2023. ? TECHNIQUE: ?? 2 views of the chest were obtained. ? FINDINGS: ?? The lungs are clear. The cardiomediastinal silhouette is normal in ?? size. There is no pleural effusion or pneumothorax. No acute osseous ?? abnormality. ? XR/XR chest 2V ?? IMPRESSION: ?? No acute cardiopulmonary findings. ? Electronically signed by: ??Rusty Lara MD ??10/18/2024 04:26 PM EST ?? RP ? Dictated By: ?Rusty Lara MD ? Signed By: ?<Electronically signed by Rusty Lara MD in OV> ?10/18/24 1626 ? DD/ 1216 ? TD/TT: 10/18/24 1226 ? Record Systems Analyst: SR ? Procedure Note Alexy Kelsey - 10/18/[address] [address] XRay Report Signed Patient: Pham Marcus#: [id number] : 1965Acct:[id number] Age/Sex: 59 / FADM Date: 10/18/24 Loc: HO.HHCX Attending Dr: Columba Ward DO Ordering Physician: Columba Ward DO Date of Service: 10/18/24 Procedure(s): XR chest 2V Accession Number(s): [id number] cc: Columba Ward DO EXAMINATION: XR CHEST CLINICAL INFORMATION: cough and SOB, COVID+, r/o PNA COMPARISON: Most recent chest radiograph dated 07/21/2023. TECHNIQUE: 2 views of the chest were obtained. FINDINGS: The lungs are clear. The cardiomediastinal silhouette is normal in size. There is no pleural effusion or pneumothorax. No acute osseous abnormality. XR/XR chest 2V IMPRESSION: No acute cardiopulmonary findings. Electronically signed by: Rusty Lara MD 10/18/2024 04:26 PM EST RP Dictated By: Rusty Lara MD Signed By: <Electronically signed by Rusty Lara MD in OV> 10/18/24 1626 DD/ 1216 TD/TT: 10/18/24 1226 Record Systems Analyst: us Columba Ward DO IMG XR PROCEDURES Edited Res ult - Final documented in this encounter Visit Diagnoses Diagnosis COVID-19- Primary documented in this encounter Additional Health Concerns Assessment Noted Time PHQ-9 Depression Total Score: 0 10/16/20 23 2:20 PM EST documented as of this encounter Care Teams Medical Transcriptionist Relationship Specialty Start Date End Date Minerva Gupta MD [address] [place] [phone] PCP - General Internal Medicine 03/28/20 documented as of this encounter
--- OUTSIDE RECORDS SUMMARY | 2024-11-15 11:56 | XMS_ITS | Clinical Summary ---
Author Organization [employer] Address [address] [place] [address] 7[address] [place] [address] Care Team Providers Care Rn Eligibility Name Role Phone Minerva Gupta MD Primary Care Provider [phone]- [phone] Allergies Active Allergy Reactions Criticality Noted Date Comments Amoxicillin-Pot Clavulanate 01/28/20 23 Other reaction(s): DIARRHEA Chlorophyllin Copper 08/04/2013 Cyclobenzaprine 08/04/2013 Other reaction(s): coma-like state Doxycycline Rash Low 06/04/2021 Pantoprazole 01/27/2023 Pt states allergy - Though also states she is waiting on prior auth for prilosec from PCP Sulfamethoxazole 08/04/2013 Sulfamethoxazole-Trimethoprim 2022 Other reaction(s): VOMMITTING AND DIARRHEA Trimethoprim 08/04/2013 Medications albuterol (2.5 MG/3ML) 0.083% nebulizer solution Inhale 3 mL every 4 (four) hours. 10/15/20 21 Active naloxone (Narcan) 4 mg/0.1 mL nasal spray ADMINISTER 1 SPRAY INTO ONE NOSTRIL. CALL 911. REPEAT AFTER 2-3 MIN IF NO OR MINIMAL RESPONSE 04/22/20 22 Active omeprazole (PriLOSEC) [address] capsule TAKE 1 CAPSULE BY MOUTH TWICE A DAY BEFORE A MEAL 180 capsule 1 03/24/20 23 Active omeprazole OTC (PriLOSEC OTC) 20 MG EC tabletIndication s:H/O gastric ulcer TAKE 1 TABLET BY MOUTH TWICE A DAY. DO NOT CRUSH, CHEW, OR SPLIT. NO SUBSTITUTIONS . PLEASE PROVIDE PRILOSEC NOT THE GENERIC. 180 tablet 3 06/05/20 Active Blood Pressure kitIndications:E levated BP without diagnosis of hypertension To check the BP every other day 1 kit 10/16/20 Active Acetaminophen Extra Strength 500 MG tabletIndication s:Opioid dependence, uncomplicated (CMS/HCC) Take 500 mg by mouth every 8 (eight) hours if needed (Joint pain). 90 tablet 3 06/09/20 Active albuterol 108 (90 Base) MCG/ACT inhalerIndicatio ns:Bronchitis Inhale 2 puffs every 6 (six) hours if needed for wheezing or shortness of breath. 18 g 1 06/09/20 Active triamcinolone (Nasacort) 55 MCG/ACT nasal inhaler Administer 2 sprays into each nostril Once per day. 16.5 g 3 10/18/20 24 2024 Active cetirizine (ZyrTEC) 10 MG tablet Take 1 tablet (10 mg) by mouth Once per day. 30 tablet 3 10/18/20 24 2024 Active azithromycin (Zithromax Z-Robert) 250 MG tablet Take 2 tabs day 1 and then 1 tab daily to finish 6 tablet 11/02/19 25 Active predniSONE (Deltasone) 20 MG tabletIndication s:COPD exacerbation (CMS/HCC) Take 1 tablet (20 mg) by mouth 3 times daily for 3 days, THEN 1 tablet (20 mg) 2 times daily for 3 days, THEN 1 tablet (20 mg) Once per day for 3 days. 18 tablet 11/15/19 25 2024 Active albuterol 108 (90 Base) MCG/ACT inhaler inhale 2 puff by inhalation route every 4 to 6 hours as needed 10/15/20 21 2023 Discontinued(M ed list cleanup (will not trigger notification to Pharmacy)) Suboxone 8-[address] TWO FILMS UNDER THE TONGUE EVERY DAY 02/06/20 23 2024 Discontinued(M ed list cleanup (will not trigger notification to Pharmacy)) omeprazole (PriLOSEC) [address] capsule TAKE 2 CAPSULES BY MOUTH BEFORE BREAKFAST (DO NOT CRUSH OR CHEW) 180 capsule 3 11/17/19 24 2024 Discontinued(M ed list cleanup (will not trigger notification to Pharmacy)) Blood Pressure Monitor kitIndications:E levated blood pressure reading 1 Device in the morning. 1 kit 12/09/19 24 2024 Discontinued(M ed list cleanup (will not trigger notification to Pharmacy)) nicotine polacrilex (Nicotine Mini) 2 MG lozengeIndicatio ns:Tobacco use Dissolve 1 lozenge (2 mg) in the mouth every 2 (two) hours if needed for smoking cessation. 100 lozenge 12/09/19 24 2024 Discontinued(M ed list cleanup (will not trigger notification to Pharmacy)) nicotine (Nicoderm CQ) 21 MG/24HR patchIndications :Tobacco use Place 1 patch on the skin 1 (one) time each day at the same time. 42 patch 12/09/19 24 2024 Discontinued(M ed list cleanup (will not trigger notification to Pharmacy)) Earwax Removal 6.5 % otic solution ADMINISTER 3-5 DROPS INTO AFFECTED EAR S) TWO TIMES A DAY FOR 4 DAYS 11/05/19 24 2024 Discontinued(M ed list cleanup (will not trigger notification to Pharmacy)) predniSONE (Deltasone) 20 MG tablet Take 3 tablets (60 mg) by mouth Once per day for 5 days. 15 tablet 10/18/20 24 2023 guaiFENesin (Mucinex) 600 MG 12 hr tablet Take 1 tablet (600 mg) by mouth if needed in the morning and at bedtime for cough. Do not crush, chew, or split. 30 tablet 1 10/18/20 24 2024 Discontinued(M ed list cleanup (will not trigger notification to Pharmacy)) benzonatate (Tessalon Perles) 100 MG capsule Take 1 capsule (100 mg) by mouth if needed in the morning, at noon, and at bedtime for cough for up to 10 days. Do not crush or chew. 30 capsule 10/18/20 24 2024 predniSONE (Deltasone) 20 MG tablet Take 2 tablets (40 mg) by mouth Once per day for 5 days. 10 tablet 11/02/19 25 2024 Active Problems Problem Noted Date Diagnosed Date Cough in adult patient 11/15/2024 Overview (11/15/2024): - Ordered XR Chest 2 Views 11/15/24 - ER precautions discussed. 11/15/24 - Seek medical attention for worsening symptoms. 11/15/24 Assessment & Plan (11/15/2024 10:49 AM EST): - Ordered XR Chest 2 Views 11/15/24 - ER precautions discussed. 11/15/24 - Seek medical attention for worsening symptoms. 11/15/24 COPD exacerbation 11/15/2024 Overview (11/15/2024): - Prescribed predniSONE (Deltasone) 20 MG tablet 11/15/24 - ER precautions discussed. 11/15/24 - Seek medical attention for worsening symptoms. 11/15/24 Assessment & Plan (11/15/2024 10:38 AM EST): - Prescribed predniSONE (Deltasone) 20 MG tablet 11/15/24 - ER precautions discussed. 11/15/24 - Seek medical attention for worsening symptoms. 11/15/24 Elevated blood pressure reading 12/10/2023 Assessment & Plan (12/10/2023 6:31 AM EST): Rechecked BP manually 148/80,denies hx of HTN -BP machine px today and pt will check 2 to 3 times a week BP and take it to her PCP -has apt already schedule in aprox 6 weeks Blurry vision, bilateral 12/10/2023 Assessment & Plan (12/10/2023 6:33 AM EST): Bl blurry vision, dry eyes , left eye floters -spoke today w Dr Roberson who will see pt today at 2 pm for eye complaints and concern of acute left eye floaters Acute non-recurrent maxillary sinusitis 03/27/20 23 Assessment & Plan (03/27/2023 1:45 PM EDT): Drink plenty of fluids, rest Patient declines flonase acetaminophen PRN Low back pain 01/27/2023 Panic disorder 01/27/2023 Posttraumatic stress disorder 01/27/2023 Seizure disorder 01/27/2023 Stress incontinence of urine 01/27/2023 Substance abuse 01/27/2023 Tobacco dependence syndrome 01/27/2023 Assessment & Plan (12/10/2023 6:32 AM EST): Smoking tobacco 1 PQT a day -px nicotine patch 21 mg daily x 6 weeks and lozenges prn-to f w PCP in 6 weeks and if better then will need to decrease patch dose then Hidradenitis suppurativa 11/20/2022 Costal chondritis 11/20/2022 Mild intermittent asthma with acute exacerbation 11/05/2022 History of drug abuse in remission 01/17/2019 Migraine 01/17/2019 Encounters Date Type Department Care Team Description 11/15/2024 10:40 AM EST Office Visit [facility] [address] [place] [phone] COPD exacerbation (CMS/HCC) (Primary Dx); Cough in adult patient 11/08/2024 Telephone [facility] [address] [place] [address] Minerva Gupta MD Chart Prep 11/02/2024 4:20 PM EST Office Visit [facility] [address] [place] [phone] Komal Soares MD Acute bronchitis, unspecified organism (Primary Dx) 11/02/2024 Patient Outreach [facility] [address] [place] [address] Minerva Gupta MD Pre-visit Planning ([facility] was completed on 12/01/2023) 10/18/2024 11:40 AM EST Office Visit [facility] [address] [place] [address] Columba Ward DO COVID-19 (Primary Dx) 10/18/2024 Travel from Last 3 Months Immunizations Name Administration Dates Next Due Influenza Whole 07/17/2009,08/07/2008 Influenza injectable quadrivalent preservative f ree 10/16/2023 Influenza, Split (incl. purified surface antigen ) 07/19/2013 Gage SARS-CoV-2 Vaccination 03/07/2021 Pneumococcal Conjugate PCV 20 10/16/2023 Pneumococcal Polysaccharide PPSV23 01/12/2006 Tetanus Toxoid, Unspecified 10/26/2002 Family History Medical History Relation Name Comments Coronary artery disease Father Hypertension Father Breast cancer Maternal Grandmother Lung cancer Mother Relation Name Status Comments Father Maternal Grandmother Mother Social History Tobacco Use Types Packs/Day Years [...] Orientation Straight 08/25/2022 10 :17 AM EDT Last Filed Vital Signs Vital Sign Reading Time Taken Comments Blood Pressure 147/89 11/15/2024 10:13 AM EST Pulse 69 11/15/2024 10:13 AM EST Temperature 36.7 ??C (98.1 ??F) 11/15/2024 10:[address] Respiratory Rate 18 11/15/2024 10:13 AM EST Oxygen Saturation 98% 11/15/2024 10:13 AM EST Inhaled Oxygen Concentration - - Weight 68 kg (150 lb) 11/15/2024 10:13 AM EST Height 160 cm (5' 3 ) 10/18/2024 11:35 AM EST Body Mass Index 26.57 10/18/2024 11:35 AM EST Plan of Treatment Health Maintenance Due Date Last Done Comments CT Colonography 1965 Colonoscopy 1965 Colorectal Cancer Screening 1965 Dental Oral Exam 1965 Dental Prophylaxis 1965 Dental X-Ray: Bitewings 1963 Dental X-Ray: Full Mouth 1963 FIT DNA/Cologuard 1963 FIT 1963 FOBT 1965 Lipid Panel 1965 Sigmoidoscopy 1963 Alcohol/Substance Use Screening 1975 Hepatitis A Vaccines (1 of 2 - Risk 2-dose series) 1982 Pap Smear 1984 Cervical Cancer Screening 1993 HPV/Cotest 1993 Mammogram 2003 Zoster Vaccines (1 of 2) 2013 RSV Patients and Patients Aged 60 years or older (1 - Risk 60-74 years 1-dose series) 2023 COVID-19 Vaccine ( - season) 2024 03/07/2021 Influenza Vaccine (#1) 2024 , 07/19/2013, 07/17/2009, Additional history exists Depression Screening 10/16/2024 10/16/2023, 10/16/20 23 SDOH Screening 12/01/2024 12/01/2023 Tobacco Screening 10/21/2025 10/21/2024 DTaP/Tdap/Td Vaccines (2 - Td or Tdap) 08/23/2031 08/23/2021, 01/24/2003, 10/26/2002 HIV Screening Completed 01/27/2023, 05/31/2021 Hepatitis C Screening Completed 01/27/2023, 021 Pneumococcal Vaccine: Pediatrics (0 to 5 Years) and At-Risk Patients (6 to 64 Years) Completed 10/16/2023, 01/12/2006 HIB Vaccines Aged Out No longer eligi ble based on patient's age to complete this topic HPV Vaccines Aged Out No longer eligi ble based on patient's age to complete this topic Hepatitis B Vaccines Aged Out No long er eligible based on patient's age to complete this topic IPV Vaccines Aged Out No longer eligi ble based on patient's age to complete this topic Meningococcal Vaccine Aged Out No casimiro shari eligible based on patient's age to complete this topic RSV under 20 months Aged Out No longe r eligible based on patient's age to complete this topic Rotavirus Vaccines Aged Out No longer eligible based on patient's age to complete this topic Procedures Procedure Name Priority Date/Time Associated Diagnosis Comments POCT INFLUENZA B (ID NOW RAPID MOLECULAR) Routine 11/15/2024 10:16 AM EST Cough in adult patient POCT INFLUENZA A (ID NOW RAPID MOLECULAR) Routine 11/15/2024 10:16 AM EST Cough in adult patient POCT RAPID COVID ANTIGEN Routine 11/15/2024 10:15 AM EST Cough in adult patient POCT INFLUENZA B (ID NOW RAPID MOLECULAR) Routine 10/18/2024 12:23 PM EST COVID-19 POCT INFLUENZA A (ID NOW RAPID MOLECULAR) Routine 10/18/2024 12:23 PM EST COVID-19 POCT RAPID COVID ANTIGEN Routine 10/18/2024 12:23 PM EST COVID-19 XR CHEST 2 VIEWS STAT 10/18/2024 12:1 6 PM EST COVID-19 HEPATITIS PANEL, GENERAL Routine 01/27/2023 10:44 AM EDT Weight loss HIV 1/2 ANTIGEN/ANTIBODY, FOURTH GENERATION W/RFL Routine 01/27/2023 10:44 AM EDT Weight loss from Last 3 Months or Most Recently Relevant to Health Maintenance Results * Influenza B (ID NOW Rapid Molecular) (11/15/2024 10:16 AM EST) Only the most recent of2 resultswithin the time period is included. Pathologist [facility] Influenza B Negative Negative, Indeterminate [facility] Swab 11/15/2024 10:1 6 AM EST us Anastasia Worthington MD POINT OF CARE TEST ENTER/E DIT ORDERABLES Final Result Performing Organization Address [facility] Co de Phone Number [facility] [address] [place] [phone] * Influenza A (ID NOW Rapid Molecular) (11/15/2024 10:16 AM EST) Only the most recent of2 resultswithin the time period is included. Pathologist [facility] Influenza A Negative Negative, Indeterminate [facility] Swab 11/15/2024 10:1 6 AM EST us Anastasia Worthington MD POINT OF CARE TEST ENTER/E DIT ORDERABLES Final Result Performing Organization Address [facility] Co de Phone Number [facility] [address] [place] [phone] * POCT Rapid COVID Ag (11/15/2024 10:15 AM EST) Only the most recent of2 resultswithin the time period is included. Pathologist [facility] Rapid COVID Ag Negative Swab 11/15/2024 10:1 5 AM EST us Anastasia Worthington MD POINT OF CARE TEST ENTER/E DIT ORDERABLES Final Result * XR Chest 2 Views (10/18/2024 12:16 PM EST) Anatomical Region Laterality Modality Chest Radiographic Fartun ging 10/18/2024 12:1 6 PM EST Narrative 10/18/2024 4:29 PM EST ?[facility] ?[address] ?[place] [address] ?XRay Report ? Signed ? Patient: Angeline,Alyson ?MR#: [id number] ?? [id number] ? : 1965 ?Acct:[id number] ? Age/Sex: 59 / F ?ADM Date: 10/18/24 ? Loc: HO.HHCX ? Attending Dr: Columba Ward DO ? Ordering Physician: Columba Ward DO ?? Date of Service: 10/18/24 ?? Procedure(s): XR chest 2V ?? Accession Number(s): [id number] ? cc: Columba Ward DO ? EXAMINATION: [...] ??Rusty Lara MD ??10/18/2024 04:26 PM EST ? Dictated By: ?Rusty Lara MD ? Signed By: ?<Electronically signed by Rusty Lara MD in OV> ?10/18/24 1626 ? DD/ 1216 ? TD/TT: 10/18/24 1226 ? Last Dipper: SR ? Procedure Note Laure, Alexy - 10/18/2024 [facility] [address] [place] [address] XRay Report Signed Patient: Pham Marcus#: [id number] : 1965Acct:[id number] Age/Sex: 59 / FADM Date: 10/18/24 Loc: .HHX Attending Dr: Columba Ward DO Ordering Physician: Columba Ward DO Date of Service: 10/18/24 Procedure(s): XR chest 2V Accession Number(s): [id number] cc: Columba Ward DO EXAMINATION: XR CHEST [...] by: Rusty Lara MD 10/18/2024 04:26 PM [facility] Dictated By: Rusty Lara MD Signed By: <Electronically signed by Rusty Lara MD in OV> 10/18/24 1626 DD/ 1216 TD/TT: 10/18/24 1226 Last Dipper: Columba Ward DO IM XR PROCEDURES Edited Res ult - Final * (ABNORMAL) Hepatitis Panel, General (01/27/2023 10:44 AM EDT) Hepatitis A Antibody Total REACTIVE( A) NON-REACT [employer] [place] [facility] Comment: For additional information, please refer to http://education.NeedFeed/faq/NEX954 (This link is being provided for informational/ educational purposes only.) Hepatitis B Surface Antibody QL NON-REACT MICHELLE NON-REACT MICHELLE [employer] [place] [facility] Hepatitis B Surface Ag NON-REACT MICHELLE NON-REACT MICHELLE [employer] [place] [facility] Hepatitis B Core Antibody Total NON-REACT MICHELLE NON-REACT [employer] [place] [facility] Hepatitis C Antibody NON-REACT MICHELLE NON-REACT MICHELLE [employer] [place] [facility] Index <0.02 <1.00 [employer] [place] [facility] Comment: HCV antibody was non-reactive. There is no laboratory evidence of HCV infection. In most cases, no further action is required. However, if recent HCV exposure is suspected, a test for HCV RNA (test code 90304) is suggested. For additional information please refer to http://SPARQ.NeedFeed/faq/CSM15q2 (This link is being provided for informational/ educational purposes only.) 01/27/2023 10:4 4 AM EDT 01/27/2023 10:46 AM EDT Minerva Gupta MD LAB BLOOD ORDERABLES Final Result Performing Organization Address [facility] Co de Phone Number [facility] [address] [place] [address], [facility] [phone] [employer] [place] [employer] [address] [place] [phone] * HIV-1/2 Antigen and Antibodies, Fourth Generation, with Reflexes (01/27/2023 10:44 AM EDT) Pathologist [facility] HIV Antigen/Antibody, 4th Generation NON-REAC TIVE NON-REAC TIVE [employer] [place] [employer] [facility] Comment: HIV-1 antigen and HIV-1/HIV-2 antibodies were not detected. There is no laboratory evidence of HIV infection. PLEASE NOTE: This information has been disclosed to you from records whose confidentiality may be protected by state law. ??If your state requires such protection, then the state law prohibits you from making any further disclosure of the information without the specific written consent of the person to whom it pertains, or as otherwise permitted by law. A general authorization for the release of medical or other information is NOT sufficient for this purpose. ?? For additional information please refer to http://SPARQ.NeedFeed/faq/HLA258 (This link is being provided for informational/ educational purposes only.) The performance of this assay has not been clinically validated in patients less than 2 years old. Blood Venous blood specimen / Unknown 01/27/2023 10:44 AM EDT 01/27/2023 10:46 AM EDT Minerva Gupta MD LAB BLOOD ORDERABLES Final Result Performing Organization Address [facility]/ZIP Co de Phone Number [facility] [address], [place] [address] [facility] [address] [place] [phone] from Last 3 Months or Most Recently Relevant to Health Maintenance Insurance [facility] C3 DENTAL-[facility] MEDICAID STAND ADULT Care Teams Rn Eligibility Relationship Specialty Start Date End Date Minerva Gupta MD [address] [place] [phone] PCP - General Internal Medicine 03/28/20
--- OUTSIDE RECORDS SUMMARY | 2024-11-15 11:56 | XMS_ITS | Encounter Summary ---
Author Organization [employer] Address [address] [facility] 7t [place] [address] Care Team Providers Care Pneumatic Jack Operator Name Role Phone Minerva Gupta MD Primary Care Provider [phone] Reason for Visit * Reason Comments Pre-visit Planning SDOH was completed o n 12/01/2023 Encounter Details Date Type Department Care Team ([facility] st Contact Info) Description 11/02/2024 Patient Outreach [facility] [address] [place] [address] Minerva Gupta MD [address] [place] [address] Pre-visit Planning (SDOH was completed on 12/01/2023) Social History Tobacco Use Types Packs/Day Years [...] AM EDT documented as of this encounter Progress Notes * Eileen Blanton - 11/02/2024 4:11 PM EST ANA Jerry placed successful outbound call to patient for pre-visit planning. Patient name and confirmed. Patient confirms appt date and time, and has transportation arrangements. Biggest concern for appointment at this time is no concerns. Appropriate screenings completed in anticipation ofappointment. documented in this encounter Plan of Treatment Not on file documented as of this encounter Visit Diagnoses Not on filedocumented in this encounter Additional Health Concerns Assessment Noted Time PHQ-9 Depression Total Score: 0 10/16/20 23 2:20 PM EST documented as of this encounter Care Teams Pneumatic Jack Operator Relationship Specialty Start Date End Date Minerva Gupta MD [address] [place] [phone] PCP - General Internal Medicine 03/28/20 documented as of this encounter
--- OUTSIDE RECORDS SUMMARY | 2024-11-15 11:56 | XMS_ITS | Encounter Summary ---
Author Organization [employer] Address [address] [facility] [address] [place] [address] Care Team Providers Care Machine Grainer Name Role Phone Minerva Gupta MD Primary Care Provider [phone] Reason for Visit * Reason Onset Date Comments LEAD DATA ENTRY OPERATOR services 01/12/2024 Encounter Details Date Type Department Care Team ([facility] st Contact Info) Description 01/12/2024 Telephone [facility] [address] [place] [address] Minerva Gupta MD [address] [place] [address] LEAD DATA ENTRY OPERATOR services Social History Tobacco Use Types Packs/Day Years [...] Miscellaneous Notes * Telephone Encounter - Palmer Boy - 01/12/2024 2:58 PM EDT Tc from daughter requesting pcp to fax over the confirmation paperwork requested by [employer] for LEAD DATA ENTRY OPERATOR services. Any questions you can contact daughter at [phone]. documented in this encounter Plan of Treatment Not on file documented as of this encounter Visit Diagnoses Not on filedocumented in this encounter Additional Health Concerns Assessment Noted Time PHQ-9 Depression Total Score: 0 10/16/20 23 2:20 PM EST documented as of this encounter Care Teams Machine Grainer Relationship Specialty Start Date End Date Minerva Gupta MD [address] [place] [phone] PCP - General Internal Medicine 03/28/20 documented as of this encounter
--- OUTSIDE RECORDS SUMMARY | 2024-11-15 11:56 | XMS_ITS | Encounter Summary ---
Author Organization [employer] Address [address] [facility] [address]t [place] [address] Care Team Providers Care And Drying Supervisor Cooking Casing Name Role Phone Minerva Gupta MD Primary Care Provider [phone] Reason for Visit * Reason Onset Date Comments Chart Prep 11/08/2024 Encounter Details Date Type Department Care Team ([facility] st Contact Info) Description 11/08/2024 Telephone [facility] [address] [place] [address] Minerva Gupta MD [address] [place] [address] Chart Prep Social History Tobacco Use Types Packs/Day Years [...] encounter Miscellaneous Notes * Telephone Encounter - Herlinda Brunson [place] - 11/08/2024 1:52 PM EST Chart Prep Labs: done Images: done Vaccines due: yes Referrals: complete Screenings: colonoscopy , mammogram , pap smear Overdue care gaps: Sbirt, SDOH, PHQ-9 documented in this encounter Plan of Treatment Not on file documented as of this encounter Visit Diagnoses Not on filedocumented in this encounter Additional Health Concerns Assessment Noted Time PHQ-9 Depression Total Score: 0 10/16/20 23 2:20 PM EST documented as of this encounter Care Teams And Drying Supervisor Cooking Casing Relationship Specialty Start Date End Date Minerva Gupta MD [address] [place] [phone] PCP - General Internal Medicine 03/28/20 documented as of this encounter
--- OUTSIDE RECORDS SUMMARY | 2024-11-15 11:56 | XMS_ITS | Encounter Summary ---
Author Organization [employer] Address [address] [facility] 7[address] [place] [address] Care Team Providers Care Legal Secretary Name Role Phone Minerva Gupta MD Primary Care Provider [phone] Encounter Details Date Type Department Care Team (Latest Contact Info) Description 10/18/2024 Travel Social History Tobacco Use Types Packs/Day Years [...] documented as of this encounter Care Teams Legal Secretary Relationship Specialty Start Date End Date Minerva Gupta MD [address] [place] [phone] PCP - General Internal Medicine 03/28/20 documented as of this encounter
--- OUTSIDE RECORDS SUMMARY | 2024-11-15 11:56 | XMS_ITS | Encounter Summary ---
Author Organization [employer] Address 75 [facility] 7t [place] [address] Care Team Providers Care Chopped Strand Operator Name Role Phone Minerva Gupta MD Primary Care Provider [phone]- [phone] Reason for Visit * Reason Comments Med Refill Encounter Details Date Type Department Care Team (Late st Contact Info) Description 03/18/2023 Refill [facility] [address] [place] [address] Minerva Gupta MD [address] [place] [id number] Social History Tobacco Use Types Packs/Day Years Used Date Smoking Tobacco: Every Day Cigarettes Cigars Smokeless Tobacco: Never Depression Answer Date Recorded Patient Health Questionnaire-9 Score 0 01/27/2023 Depression Answer Date Recorded Patient Health Questionnaire-2 Score 0 01/27/2023 Comments Unknown Sex and Gender Information Value Date Recorded Sex Assigned at Female 08/25/2022 10:17 AM EDT Legal Sex Female 10:17 AM EDT Gender Identity Female 08/25/2022 10:17 AM EDT Sexual Orientation Straight 08/25/2022 10 :17 AM EDT documented as of this encounter Miscellaneous Notes * Telephone Encounter - Ashanti Monique - 03/18/2023 8:30 AM EDT Tc from patient requesting a med refill on medication omeprazole 20 mg to be [facility] chart. PCP Dr. Gupta documented in this encounter Plan of Treatment Not on file documented as of this encounter Visit Diagnoses Not on filedocumented in this encounter Additional Health Concerns Assessment Noted Time PHQ-9 Depression Total Score: 0 01/28/20 23 10:41 AM EDT documented as of this encounter Care Teams Chopped Strand Operator Relationship Specialty Start Date End Date Minerva Gupta MD [address] [place] [id number] PCP - General Internal Medicine 03/28/20 documented as of this encounter
--- OUTSIDE RECORDS SUMMARY | 2024-11-15 11:56 | XMS_ITS | Encounter Summary ---
Author Organization [employer] Address [address] [place] [address] 7t [place] [address] Care Team Providers Care Gas Maker Helper Name Role Phone Minerva Gupta MD Primary Care Provider [phone] Encounter Details Date Type Department Care Team (Late st Contact Info) Description 11/21/2022 Abstract [facility] MED & PEDS [address] [place], [place] [phone] Minerva Gupta MD [address] [place] [address] Social History Tobacco Use Types Packs/Day Years Used Date Smoking Tobacco: Every Day Cigarettes Smokeless Tobacco: Never Comments Unknown Sex and Gender Information Value Date Recorded Sex Assigned at Female 08/25/2022 10:17 AM EDT Legal Sex Female 10:17 AM EDT Gender Identity Female 08/25/2022 10:17 AM EDT Sexual Orientation Straight 08/25/2022 10 :17 AM EDT COVID-19 Exposure Response Date Recorded In the last 10 days, have yo u been in contact with someone who was confirmed or suspected to have Coronavirus/COVID-19? No / Unsure 11/20/2022 2:33 PM EST documented as of this encounter Plan of Treatment Not on file documented as of this encounter Visit Diagnoses Not on filedocumented in this encounter Care Teams Gas Maker Helper Relationship Specialty Start Date End Date Minerva Gupta MD [address] [place] [address] PCP - General Internal Medicine 03/28/20 documented as of this encounter
--- OUTSIDE RECORDS SUMMARY | 2024-11-15 11:56 | XMS_ITS | Encounter Summary ---
Author Organization [employer] Address 75 [facility] 7t [place] [address] Care Team Providers Care Water Treatment Plant Mechanic Name Role Phone Minerva Gupta MD Primary Care Provider [phone] Reason for Visit * Reason Onset Date Comments ER Follow-up 11/20/2022 Encounter Details Date Type Department Care Team ([facility] st Contact Info) Description 11/20/2022 Telephone [facility] MEDICINE [address] [place] [address] Minerva Gupta MD [address] [place] [id number] ER Follow-up Social History Tobacco Use Types Packs/Day Years [...] PM EST documented as of this encounter Miscellaneous Notes * Telephone Encounter - Inez Melton RN - 11/20/2022 8:41 AM EST called pt to triage, spoke to pt. pt seen [facility] [place]15 for sinusitis and an infected, swollen RMF. pt completed the antibiotics and was getting better until yesterday when the finger became more swollen and red. pt was tested for flu and covid and was negative for both. given appt today with [facility] at 2:40 for exam and recheck. advised to follow ER discharge instructions and call back as needed . pt understands and agrees with plan. insurance verified. Multiple (2) protocols were used on this call. Disposition for Call: See in Office or Video Visit Today or Tomorrow Protocol Used: Sinus Pain or Congestion (Adult) Protocol-Based Disposition: See in Office or Video Visit Today or Tomorrow Video visit offer not recorded Positive Triage Question: * Patient wants to be seen * All higher-acuity triage questions were negative Care Advice Discussed: * Reassurance and Education - Colds and Sinus Congestion * For a Runny Nose - Blow Your Nose * Nasal Washes for a Stuffy Nose * Hydration * Reasons To Call Back - You become worse Protocol Used: Finger Pain (Adult) Care Advice Discussed: * Reasons To Call Back - Fever occurs - You become worse * Telephone Encounter - Petey Pena - 11/20/2022 8:06 AM EST Patient calling to report ED visit on 11/15/22 at [facility]. Diagnosed with infection on finger, pt statesthey are still in pain and its swelling also has discharge. Patient advised will forward to team nurse for follow up. Please contact at [phone] documented in this encounter Plan of Treatment Not on file documented as of this encounter Visit Diagnoses Not on filedocumented in this encounter Care Teams Water Treatment Plant Mechanic Relationship Specialty Start Date End Date Minerva Gupta MD [address] [place] [id number] PCP - General Internal Medicine 03/28/20 documented as of this encounter
== END 2024-11-15 10:35 | disposition home or self-care (01) ==
LOC: HO.HHCX 10:34
PROVIDERS: Visit Provider Family Medicine
DX: R05.9 Cough, unspecified (principal)
CPT/HCPCS: 71046

== ENCOUNTER → 2024-11-15 10:35 | Outpatient (BNV) | payer MEDICAID, SELFPAY | PROVIDERS: Visit Provider Radiology Diagnostic Radiology | DX: R05.9 Cough, unspecified (principal); J44.9 Chronic obstructive pulmonary disease, unspecified | CPT/HCPCS: 71046 ==

== ENCOUNTER 2024-11-23 12:20 | Outpatient (REF) | payer MEDICAID, SELFPAY ==
[2024-11-24 14:45] LABS: Adenovirus PCR Not Detected (Not Detect.); Bordetella parapertussis PCR Not Detected (Not Detect.); Bordetella pertussis PCR Not Detected (Not Detect.); Chlamydia pneumoniae PCR Not Detected (Not Detect.); Coronavirus 229E PCR Not Detected (Not Detect.); Coronavirus HKU1 PCR Not Detected (Not Detect.); Coronavirus NL63 PCR Not Detected (Not Detect.); Coronavirus OC43 PCR Not Detected (Not Detect.); Human metapneumovirus PCR Not Detected (Not Detect.); Influenza A PCR Not Detected (Not Detect.); Influenza B PCR Not Detected (Not Detect.); Mycoplasma pneumoniae PCR Not Detected (Not Detect.); Parainfluenza 1 PCR Not Detected (Not Detect.); Parainfluenza 2 PCR Not Detected (Not Detect.); Parainfluenza 3 PCR Not Detected (Not Detect.); Parainfluenza 4 PCR Not Detected (Not Detect.); RSV PCR Not Detected (Not Detect.); Rhino/Enterovirus PCR Detected (Not Detect.)
[2024-11-24 15:12] LABS: SARS-CoV-2 PCR Not Detected (Not Detect.)
--- OUTSIDE RECORDS SUMMARY | 2024-11-24 16:09 | XMS_ITS | Encounter Summary ---
Author Organization [employer] Address [address] [place] [address] Care Team Providers Care Arborist Climber Name Role Phone Minerva Gupta MD Primary Care Provider [phone] Reason for Visit * Reason Comments Pre-visit Planning SDOH was completed o n 12/01/2023 Encounter Details Date Type Department Care Team ([facility] st Contact Info) Description 11/02/2024 Patient Outreach [facility] MED & PEDS [address] [place] [address] Minerva Gupta MD [address] [place] [address] Pre-visit Planning (SDOH was completed on 12/01/2023) [...] Eileen Blanton - 11/02/2024 4:11 PM EST CC Eileen Jerry placed successful outbound call to patient for pre-visit planning. Patient name and confirmed. Patient confirms appt date and time, and has transportation arrangements. Biggest concern for appointment at this time is no concerns. Appropriate screenings completed in anticipation of appointment. documented in this encounter Plan of Treatment Not on file documented as of this encounter Visit Diagnoses Not on filedocumented in this encounter Additional Health Concerns Assessment Noted Time PHQ-9 Depression Total Score: 0 10/16/20 23 2:20 PM EST documented as of this encounter Care Teams Arborist Climber Relationship Specialty Start Date End Date Minerva Gupta MD [address] [place] [id number] PCP - General Internal Medicine 03/28/20 documented as of this encounter
--- OUTSIDE RECORDS SUMMARY | 2024-11-24 16:09 | XMS_ITS | Encounter Summary ---
Author Organization [employer] Address [address] [place] [address] 7 [place] [address] Care Team Providers Care Performance Engineer Name Role Phone Minerva Gupta MD Primary Care Provider [phone] Encounter Details Date Type Department Care Team (Late st Contact Info) Description 11/21/2022 Abstract [facility] [address] [place] [address] Minerva Gupta MD [address] [place] [address] Social History Tobacco Use Types Packs/Day Years [...] Recorded In the last 10 days, have emily u been in contact with someone who was confirmed or suspected to have Coronavirus/COVID-19? No / Unsure 11/20/2022 2:33 PM EST documented as of this encounter Plan of Treatment Not on file documented as of this encounter Visit Diagnoses Not on filedocumented in this encounter Care Teams Performance Engineer Relationship Specialty Start Date End Date Minerva Gupta MD [address] [place] [address] PCP - General Internal Medicine 03/28/20 documented as of this encounter
--- OUTSIDE RECORDS SUMMARY | 2024-11-24 16:09 | XMS_ITS | Encounter Summary ---
Author Organization [employer] Address 75 [facility] 7 [place] [address] Care Team Providers Care Sidewalk Repairer Name Role Phone Minerva Gupta MD Primary Care Provider [phone] Reason for Visit * Reason Onset Date Comments Nurse Triage 10/06/2023 Encounter Details Date Type Department Care Team ([facility] st Contact Info) Description 10/06/2023 Telephone [facility] MEDICINE [address] [place] [address] Minerva Gupta MD [address] [place] [address] Nurse Triage Social History Tobacco Use Types [...] enough money to get more: Often true 02/ 03/2024 Transportation Answer Date Recorded In the [...] home. Pt is advised to come to [facility] to be seen by provider and Pt [...] * Telephone Encounter - Petey Pena - 10/06/2023 9:27 AM EST Symptom: Headache Outcome: Schedule an urgent appointment (within 4 hours) or talk to a nurse or provider soon Reason: Getting worse, cough, chills EXPOSED to RSV. The caller accepted this outcome Please contact at [phone] documented in this encounter Plan of Treatment Not on file documented as of this encounter Visit Diagnoses Not on filedocumented in this encounter Additional Health Concerns Assessment Noted Time PHQ-9 Depression Total Score: 0 01/28/20 23 10:41 AM EDT documented as of this encounter Care Teams Sidewalk Repairer Relationship Specialty Start Date End Date Minerva Gupta MD [address] [place] [address] PCP - General Internal Medicine 03/28/20 documented as of this encounter
--- OUTSIDE RECORDS SUMMARY | 2024-11-24 16:09 | XMS_ITS | Encounter Summary ---
Author Organization [employer] Address 75 [facility] 7t [place] [address] Care Team Providers Care Software Engineer Web Applications Name Role Phone Minerva Gupta MD Primary Care Provider [phone] Reason for Visit * Reason Comments Walk-In Symptoms are worse , was here last week Encounter Details Date Type Department Care Team ([facility] st Contact Info) Description 11/23/2024 7:00 PM EST Office Visit [facility] [address] [place], [place] [phone] William Mackenzie MD [address] [place], [place] [phone] COPD exacerbation (CMS/HCC) (Primary Dx) Social History Tobacco Use Types [...] Sign Reading Time Taken Comments Blood Pressure 177/88 11/23/2024 7:42 PM EST Pulse 57 11/23/2024 7:42 PM EST Temperature 36.4 ??C (97.6 ??F) 11/23/2024 7:42 PM ES T Respiratory Rate 22 11/23/2024 7:42 PM EST Oxygen Saturation 98% 11/23/2024 7:42 PM EST Inhaled Oxygen Concentration - - Weight 68 kg (150 lb) 11/23/2024 7:42 PM EST Height - - Body Mass Index 26.57 10/18/2024 11:35 AM EST documented in this encounter Progress Notes * William Mackenzie MD - 11/23/2024 7:00 PM EST Subjective History was provided by the patient. Alyson Marcus is a 59 y.o. female who presents for evaluation of ongoing cough, congestion, andSOB for now 4 weeks. Underlying tobacco use disorder and mild intermittent asthma. Recent CXR negative on 10/18/2024 and 11/15/2024. States she significantly reduced tobacco use. Denies F/C. Denies N/V/D. Previously visits: 10/18/2024: Diagnosed with COVID infection; CXR negative 11/02/2024: Diagnosed with bronchitis; treated with Azithromycin and Prednisone 40mg daily for 5 days 11/15/2024: Diagnosed with COPD exacerbation; treated with Prednisone 9-day tapering course; COVID-19 test was negative at this visit Of note, patient is allergic to Doxycycline, Augmentin, and Bactrim DS. Objective Vitals: 11/23/241941 BP: (!) 177/88 BP Location: Right arm Patient Position: Sitting BP Cuff Size: Adult long Pulse: 57 Resp: 22 Temp: 97.6 ??F (36.4 ??C) TempSrc: Oral SpO2: 98% Weight: 150 lb (68 kg) Physical Exam Vitals reviewed. Constitutional: Appearance: Normal appearance. She is normal weight. HENT: Head: Normocephalic and atraumatic. Right Ear: Tympanic membrane, ear canal and external ear normal. Left Ear: Tympanic membrane, ear canal and external ear normal. Nose: Nose normal. No congestion or rhinorrhea. Mouth/Throat: Mouth: Mucous membranes are moist. Pharynx: Oropharynx is clear. No oropharyngeal exudate or posterior oropharyngeal erythema. Eyes: Extraocular Movements: Extraocular movements intact. Conjunctiva/sclera: Conjunctivae normal. Pupils: Pupils are equal, round, and reactive to light. Cardiovascular: Rate and Rhythm: Normal rate and regular rhythm. Heart sounds: Normal heart sounds. Pulmonary: Effort: Pulmonary effort is normal. No respiratory distress. Breath sounds: Wheezing (Scattered end-expiratory wheezing) present. No rhonchi or rales. Comments: Speaking in full sentences Musculoskeletal: General: Normal range of motion. Cervical back: Normal range of motion and neck supple. Skin: General: Skin is warm and dry. Neurological: General: No focal deficit present. Mental Status: She is alert and oriented to person, place, and time. Mental status is at baseline. Psychiatric: Mood and Affect: Mood normal. Behavior: Behavior normal. Thought Content: Thought content normal. Judgment: Judgment normal. No visits with results within 2 Day(s) from this visit. Latest known visit with results is: Office Visit on 11/15/2024 Component Date Value Ref Range Status Influenza A 11/15/2024 Negative Negative, Indeterminate Final Rapid COVID Ag 11/15/2024 Negative Final Influenza B 11/15/2024 Negative Negative, Indeterminate Final Alyson was seen today for walk-in. Diagnoses and all orders for this visit: COPD exacerbation ([facility]) (Primary) - Respiratory Viral Panel PCR - predniSONE (Deltasone) 10 MG tablet; Take by oral route daily. 6 tabs (=60mg) on day 1-2; 5 tabs (=50mg) on day 3-4; 4 tabs (=40mg) on day 5-6; 3 tabs (=30mg) on day 7-8; 2 tabs (=20mg) on day 9-10; 1 tab on day 11-12; 1/2 tab on day 13-14 Patient with a clinical presentation of asthma vs COPD exacerbations Symptoms now present for >4 weeks since her COVID-19 diagnosis Had two CXR that were both within normal Diffuse end-expiratory wheezing, but no respiratory distress and speaking in full sentences O2 sat reassuring at 98% on RA Numerous antibiotic allergies Was treated with Azithromycin at the onset of her symptoms Given duration of her symptoms, will check Respiratory Panel Will extend Prednisone, but slow 2-week taper Potential adverse effects of Prednisone use discussed Encouraged complete smoking cessation Discussed supportive care with ample hydration, sleep position and rest OTC supportive medications reviewed Will request the PCP team to follow up in 1 week Advised to contact the clinic if no improvement of symptoms Indications for UC/ER use reviewed documented in this encounter Plan of Treatment Not on file documented as of this encounter Procedures Procedure Name Priority Date/Time Associated Diagnosis Comments RESPIRATORY VIRAL PANEL PCR Routine 11/23/2024 8:10 PM EST COPD exacerbation ([facility]) documented in this encounter Results * (ABNORMAL) Respiratory Viral Panel PCR (11/23/2024 8:10 PM EST) Adenovirus PCR Not Detected Not Detect. [facility] Bordetella pertussis PCR Not Detected Not Detect. [facility] Comment:Interpret results wi th caution. If B. pertussis isspecifically suspected, additional testing using analternate method is recommended. Bordetella parapertussis PCR Not Detected Not Detect. [facility] Chlamydia pneumoniae PCR Not Detected Not Detect. [facility] Coronavirus 229E PCR Not Detected Not Detect. [facility] Coronavirus HKU1 PCR Not Detected Not Detect. [facility] Coronavirus NL63 PCR Not Detected Not Detect. [facility] Coronavirus OC43 PCR Not Detected Not Detect. [facility] SARS-CoV-2 PCR Not Detected Not Detect. [facility] Comment:SARS-CoV-2 not detec laverne by real-time RT-PCR.Note: If clinical suspicion for Sars-CoV-2 is high, continueto maintain precautions and consider repeat testing.Test results should be interpreted in the context ofclinical findings and other laboratory data.Rare polymorphisms exist that could lead to false-negativeor false-positive results. If results do not match theclinical findings, additional testing should be considered.Results reported to [facility].This test has been authorized by the FDA under the EmergencyUse Authorization (EUA) for use by authorized laboratories. Influenza A PCR Not Detected Not Detect. [facility] Influenza B PCR Not Detected Not Detect. [facility] Human metapneumovirus PCR Not Detected Not Detect. [facility] Rhino/Enterovirus PCR Detected(A) Not Detect. [facility] Mycoplasma pneumoniae PCR Not Detected Not Detect. [facility] Parainfluenza 1 PCR Not Detected Not Detect. [facility] Parainfluenza 2 PCR Not Detected Not Detect. [facility] Parainfluenza 3 PCR Not Detected Not Detect. [facility] Parainfluenza 4 PCR Not Detected Not Detect. [facility] RSV PCR Not Detected Not Detect. [facility] Resp Panel NA Note See Note H [facility] Comment:All results must be correlated with clinical findings.Negative results should not be used as the sole basis fordiagnosis, treatment, or other management decisions.A negative result does not exclude the possibility of viralor bacterial infection. Negative results may occur from thepresence of sequence variants in the region targeted by theassay, the presence of inhibitors, an infection caused by anorganism not detected by the panel, or lower respiratorytract infections that are not detected by a nasopharyngealswab specimen. Test results may also be affected byconcurrent antiviral/antibacterial therapy or levels oforganism in the specimen that are below the limit ofdetection for this test.This assay is performed by Multiplexed PCR, utilizing [employer] Array. Swab 11/23/2024 8:10 PM EST 11/24/2024 12:21 PM EST us William Mackenzie MD LAB BLOOD ORDERABLES Final Resul t [facility] [address] [place] [address] [phone] documented in this encounter Visit Diagnoses Diagnosis COPD exacerbation ([facility])- Primary Obstructive chronic bronchitis with exacerbation documented in this encounter Additional Health Concerns Assessment Noted Time PHQ-9 Depression Total Score: 0 10/16/20 23 2:20 PM EST documented as of this encounter Care Teams Software Engineer Web Applications Relationship Specialty Start Date End Date Minerva Gupta MD [address] [place] [id number] PCP - General Internal Medicine 03/28/20 documented as of this encounter
--- OUTSIDE RECORDS SUMMARY | 2024-11-24 16:09 | XMS_ITS | Encounter Summary ---
Author Organization [employer] Address 75 [facility] 7t [place] [address] Care Team Providers Care Corporate Aircraft Mechanic Name Role Phone Minerva Gupta MD Primary Care Provider [phone] Encounter Details Date Type Department Care Team (Latest Contact Info) Description 11/23/2024 Travel Social History Tobacco Use Types Packs/Day [...] documented as of this encounter Care Teams Corporate Aircraft Mechanic Relationship Specialty Start Date End Date Minerva Gupta MD [address] [place] [id number] PCP - General Internal Medicine 03/28/20 documented as of this encounter
--- OUTSIDE RECORDS SUMMARY | 2024-11-24 16:09 | XMS_ITS | Encounter Summary ---
Author Organization [employer] Address 75 [facility] 7 [place] [address] Care Team Providers Care Printed Circuit Boards Solder Leveler Name Role Phone Minerva Gupta MD Primary Care Provider [phone] Reason for Visit * Reason Comments Cough Encounter Details Date Type Department Care Team ([facility] st Contact Info) Description 11/15/2024 10:40 AM EST Office Visit [facility] [address] [place] [address] [phone] Anastasia Worthington MD [address] [place] [address] [phone] COPD exacerbation (CMS/HCC) (Primary Dx); Cough in [...] in this encounter Progress Notes * Columba Archibald MA - 11/15/2024 10:40 AM EST Subjective History was provided by the patient. Alyson Marcus is a 59 y.o. female with PMHx of tobacco dependency, seizure disorder, and mild intermittent asthma. Treated for bronchitis on the 02 of November and given erythromycin as treatment. Who presents for evaluation of symptoms of a URI. Symptoms include cough, congestion, and has beenhaving trouble expelling sputum . Onset of symptoms was 2 weeks ago, unchanged since that time. Associated negative symptoms include fever and shortness of breath. Evaluation to date: November 02 2024 . Treatment to date: antibiotics Pt notes she last took her nebulizer last night and reports she has cut down on her smoking. Objective Vitals: 11/15/24 1013 BP: (!) 147/89 BP Location: Left arm Patient Position: Sitting BP Cuff Size: Adult Pulse: 69 Resp: 18 Temp: 98.1 ??F (36.7 ??C) TempSrc: Temporal SpO2: 98% Weight: 150 lb (68 kg) Physical Exam Constitutional: Appearance: Normal appearance. Cardiovascular: Rate and Rhythm: Normal rate and regular rhythm. Heart sounds: Normal heart sounds. Pulmonary: Effort: Pulmonary effort is normal. Breath sounds: Wheezing present. No rhonchi or rales. Abdominal: Tenderness: There is no abdominal tenderness. Musculoskeletal: Cervical back: Normal range of motion and neck supple. Neurological: General: No focal deficit present. Mental Status: She is alert. Psychiatric: Behavior: Behavior normal. Office Visit on 11/15/2024 Component Date Value Ref Range Status Influenza A 11/15/2024 Negative Negative, Indeterminate Final Rapid COVID Ag 11/15/2024 Negative Final Influenza B 11/15/2024 Negative Negative, Indeterminate Final Problem List Items Addressed This Visit Cough in adult patient - Ordered XR Chest 2 Views 11/15/24 - ER precautions discussed. 11/15/24 - Seek medical attention for worsening symptoms. 11/15/24 Relevant Orders Influenza A (ID NOW Rapid Molecular) (Completed) POCT Rapid COVID Ag (Completed) Influenza B (ID NOW Rapid Molecular) (Completed) XR Chest 2 Views (Completed) COPD exacerbation ([facility]) - Primary -CXR 11/15/24 No active pulmonary disease. - Prescribed predniSONE (Deltasone) 20 MG tablet 11/15/24 - ER precautions discussed. 11/15/24 - Seek medical attention for worsening symptoms. Relevant Medications predniSONE (Deltasone) 20 MG tablet -No evidence of respiratory distress. Symptoms mild. -No evidence of dehydration. -Supportive care advised. -Isolation recommendations discussed. -ER precautions discussed. -Seek medical attention for worsening symptoms. IColumba, am serving as a scribe to document services personally performed by Dr. Anastasia Worthington, based on the patient's response to questions by provider and providers statements to me. documented in this encounter Miscellaneous Notes * [...] 10:38 AM EST Associated Problem(s): COPD exacerbation ([facility]) -CXR 11/15/24 No active pulmonary disease. - Prescribed predniSONE (Deltasone) 20 MG tablet 11/15/24 - ER precautions discussed. 11/15/24 - Seek medical attention for worsening symptoms. documented in this encounter Plan of Treatment Not on file documented as of this encounter Procedures Procedure Name Priority Date/Time Associated Diagnosis Comments XR CHEST 2 VIEWS Routine 11/15/2024 10:3 5 AM EST Cough in adult patient POCT INFLUENZA B (ID NOW RAPID MOLECULAR) Routine 11/15/2024 10:16 AM EST Cough in adult patient POCT INFLUENZA A (ID NOW RAPID MOLECULAR) Routine 11/15/2024 10:16 AM EST Cough in adult patient POCT RAPID COVID ANTIGEN Routine 11/15/2024 10:15 AM EST Cough in adult patient documented in this encounter Results * XR Chest 2 Views (11/15/2024 10:35 AM EST) Anatomical Region Laterality Modality Chest Radiographic Fartun ging 11/15/2024 10:3 5 AM EST Narrative 11/15/2024 12:06 PM EST ?[facility] ?[address] ?[place] [address] ?XRay Report ? Signed ? Patient: Angeline,Alyson ?MR#: [id number] ?? [id number] ? : 1965 ?Acct:[id number] ? Age/Sex: 59 / F ?ADM Date: 11/15/24 ? Loc: HO.HHCX ? Attending Dr: Anastasia Worthington MD ? Ordering Physician: Anastasia Worthington MD ?? Date of Service: 11/15/24 ?? Procedure(s): XR chest 2V ?? Accession Number(s): [id number] ? cc: Anastasia Worthington MD ? EXAMINATION: ?? XR CHEST ? CLINICAL INFORMATION: ?? worseining cough and congestion in pt with COPD ? COMPARISON: ?? 10/18/2024. ?? 07/21/2023. ? TECHNIQUE: ?? 2 views of the chest were obtained. ? FINDINGS: ?? The cardiac, hilar, and mediastinal contours are normal. ? The lungs are clear bilaterally. There is no pneumothorax or pleural ?? effusion. ? There is no focal osseous or soft tissue abnormality. There are spinal ?? degenerative changes with a levoconvex lumbar scoliosis. ? XR/XR chest 2V ?? IMPRESSION: ?? No active pulmonary disease. ? Electronically signed by: ??Buck Shaver MD ??11/15/2024 12:03 PM EST RP ? Dictated By: ?Buck Shaver MD ? Signed By: ?<Electronically signed by Buck Shaver MD in OV> ?11/15/24 1203 ? DD/ 1035 ? TD/TT: 11/15/24 1050 ? Account Manager Education: ? Procedure Note Laure, Image - 11/15/2024 [facility] [address] [place] [address] XRay Report Signed Patient: Pham Marcus#: [id number] : 1965Acct:[id number] Age/Sex: 59 / FADM Date: 11/15/24 Loc: HO.HHCX Attending Dr: Anastasia Worthington MD Ordering Physician: Anastasia Worthington MD Date of Service: 11/15/24 Procedure(s): XR chest 2V Accession Number(s): [id number] cc: Anastasia Worthington MD EXAMINATION: XR CHEST CLINICAL INFORMATION: worseining cough and congestion in pt with COPD COMPARISON: 10/18/2024. 07/21/2023. TECHNIQUE: 2 views of the chest were obtained. FINDINGS: The cardiac, hilar, and mediastinal contours are normal. The lungs are clear bilaterally. There is no pneumothorax or pleural effusion. There is no focal osseous or soft tissue abnormality. There are spinal degenerative changes with a levoconvex lumbar scoliosis. XR/XR chest 2V IMPRESSION: No active pulmonary disease. Electronically signed by: Buck Shaver MD 11/15/2024 12:03 PM EST Dictated By: Buck Shaver MD Signed By: <Electronically signed by Buck Shaver MD in OV> 11/15/24 1203 DD/ 1035 TD/TT: 11/15/24 1050 Account Manager Education: Anastasia Worthington MD IMG XR PROCEDURES Edited R esult - Final * Influenza B (ID NOW Rapid Molecular) (11/15/2024 10:16 AM EST) Pathologist [facility] Influenza B Negative Negative, Indeterminate [facility] Swab 11/15/2024 10:1 6 AM EST Anastasia Worthington MD POINT OF CARE TEST ENTER/E DIT ORDERABLES Final Result [facility] [address] [place] [address] [phone] * Influenza A (ID NOW Rapid Molecular) (11/15/2024 10:16 AM EST) Influenza A Negative Negative, Indeterminate [facility] Swab 11/15/2024 10:1 6 AM EST Anastasia Worthington MD POINT OF CARE TEST ENTER/E DIT ORDERABLES Final Result [facility] [address] [place] [address] [phone] * POCT Rapid COVID Ag (11/15/2024 10:15 AM EST) Rapid COVID Ag Negative Swab 11/15/2024 10:1 5 AM EST Anastasia Worthington MD POINT OF CARE TEST ENTER/E DIT ORDERABLES Final Result documented in this encounter Visit Diagnoses Diagnosis COPD exacerbation ([facility])- Primary Obstructive chronic bronchitis with exacerbation Cough in adult patient documented in this encounter Additional Health Concerns Assessment Noted Time PHQ-9 Depression Total Score: 0 10/16/20 23 2:20 PM EST documented as of this encounter Care Teams Printed Circuit Boards Solder Leveler Relationship Specialty Start Date End Date Minerva Gupta MD [address] [place] [phone] PCP - General Internal Medicine 03/28/20 documented as of this encounter
--- OUTSIDE RECORDS SUMMARY | 2024-11-24 16:09 | XMS_ITS | Encounter Summary ---
Author Organization [employer] Address 75 [facility] 7t [place] [address] Care Team Providers Care Paint Striping Machine Operator Name Role Phone Minerva Gupta MD Primary Care Provider [phone] Encounter Details Date Type Department Care Team (Late st Contact Info) Description 11/15/2024 Telephone [facility] [address] [place] [address] [phone] Anastasia Worthington MD [address] [place] [phone] Social History Tobacco Use Types Packs/Day Years [...] encounter Miscellaneous Notes * Telephone Encounter - Chantel Najera RN - 11/15/2024 1:01 PM EST ----- Message from Anastasia Worthington MD sent at 11/15/2024 12:17 PM EST ----- Please let pt know there was no active issues on CXR no pneumonia. Continue current plan. TC placed to pt and the above message was discussed, documented in this encounter Plan of Treatment Not on file documented as of this encounter Visit Diagnoses Not on filedocumented in this encounter Additional Health Concerns Assessment Noted Time PHQ-9 Depression Total Score: 0 10/16/20 23 2:20 PM EST documented as of this encounter Care Teams Paint Striping Machine Operator Relationship Specialty Start Date End Date Minerva Gupta MD [address] [place] [phone] PCP - General Internal Medicine 03/28/20 documented as of this encounter
--- OUTSIDE RECORDS SUMMARY | 2024-11-24 16:09 | XMS_ITS | Encounter Summary ---
Author Organization [employer] Address [address] [place] [address] Care Team Providers Care Fitter Hand Name Role Phone Minerva Gupta MD Primary Care Provider [phone] Reason for Visit * Reason Onset Date Comments Chart Prep 11/08/2024 Encounter Details Date Type Department Care Team ([facility] st Contact Info) Description 11/08/2024 Telephone [facility] [address] [place] [address] Minerva Gupta MD [address] [place] [address] Chart Prep Social History Tobacco Use Types [...] documented as of this encounter Care Teams Fitter Hand Relationship Specialty Start Date End Date Minerva Gupta MD [address] [place] [address] [place] [phone] PCP - General Internal Medicine 03/28/20 documented as of this encounter
--- OUTSIDE RECORDS SUMMARY | 2024-11-24 16:09 | XMS_ITS | Encounter Summary ---
Author Organization [employer] Address 75 [facility] 7 [place] [address] Care Team Providers Care Corrugator Name Role Phone Minerva Gupta MD Primary Care Provider [phone] Reason for Visit * Reason Onset Date Comments BOX CLOSING MACHINE OPERATOR services 01/12/2024 Encounter Details Date Type Department Care Team ([facility] st Contact Info) Description 01/12/2024 Telephone [facility] [address] [place] [address] Minerva Gupta MD [address] [place] [address] BOX CLOSING MACHINE OPERATOR services Social History Tobacco Use Types [...] fax over the confirmation [facility] BOX CLOSING MACHINE OPERATOR services. Any questions you can contact daughter at [phone]. documented in this encounter Plan of Treatment Not on file documented as of this encounter Visit Diagnoses Not on filedocumented in this encounter Additional Health Concerns Assessment Noted Time PHQ-9 Depression Total Score: 0 10/16/20 23 2:20 PM EST documented as of this encounter Care Teams Corrugator Relationship Specialty Start Date End Date Minerva Gupta MD [address] [place] [id number] PCP - General Internal Medicine 03/28/20 documented as of this encounter
--- OUTSIDE RECORDS SUMMARY | 2024-11-24 16:10 | XMS_ITS | Encounter Summary ---
Author Organization [employer] Address [address] [place] [address] [place] [address] Care Team Providers Care C 13 Catapult Operator Name Role Phone Minerva Gupta MD Primary Care Provider [phone] Encounter Details Date Type Department Care Team [...] on filedocumented in this encounter Care Teams C 13 Catapult Operator Relationship Specialty Start Date End Date Minerva Gupta MD [address] [place] [address] PCP - General Internal Medicine 03/28/20 documented as of this encounter
--- OUTSIDE RECORDS SUMMARY | 2024-11-24 16:10 | XMS_ITS | Encounter Summary ---
Author Organization [employer] Address 75 [facility] 7 [place] [address] Care Team Providers Care Audio Tape Librarian Name Role Phone Minerva Gupta MD Primary Care Provider [phone] Reason for Visit * Reason Onset Date Comments ER Follow-up 11/20/2022 Encounter Details Date Type Department Care Team ([facility] st Contact Info) Description 11/20/2022 Telephone [facility] MEDICINE [address] [place] [address] Minerva Gupta MD [address] [place] [address] ER Follow-up Social History Tobacco Use Types Packs/Day Years Used Date Smoking Tobacco: Every Day Cigarettes Smokeless Tobacco: Never Depression Answer Date Recorded [...] suspected to have Coronavirus/COVID-19? No / Unsure 04/14/2023 12:57 PM EDT documented as of this encounter Miscellaneous Notes * Telephone Encounter - Inez Melton RN - 11/20/2022 8:41 AM EST called pt to triage, spoke to pt. pt seen [facility] ER on 11/15 for sinusitis and an infected, swollen RMF. pt completed the antibiotics and was getting better until yesterday when the finger became more swollen and red. pt was tested for flu and covid and was negative for both. given appt today with [facility] at 2:40 for exam and recheck. advised [...] to report ED visit on 11/15/22 at [facility]. Diagnosed with infection on finger, pt statesthey are still in pain and its swelling also has discharge. Patient advised will forward to team nurse for follow up. Please contact at [phone] documented in this encounter Plan of Treatment Not on file documented as of this encounter Visit Diagnoses Not on filedocumented in this encounter Care Teams Audio Tape Librarian Relationship Specialty Start Date End Date Minerva Gupta MD [address] [place] [phone] PCP - General Internal Medicine 03/28/20 documented as of this encounter
--- OUTSIDE RECORDS SUMMARY | 2024-11-24 16:10 | XMS_ITS | Encounter Summary ---
Author Organization [employer] Address 75 [facility] 7t [place] [address] Care Team Providers Care Yard Warehouse Worker Name Role Phone Minerva Gupta MD Primary Care Provider [phone] Reason for Visit * Reason Comments Cough Encounter Details Date Type Department Care Team ([facility] Contact Info) Description 11/02/2024 4:20 PM EST Office Visit [facility] [address] [place] [address] Komal Soares MD [address] [place] [address] Acute bronchitis, unspecified organism (Primary Dx) Social [...] documented as of this encounter Care Teams Yard Warehouse Worker Relationship Specialty Start Date End Date Minerva Gupta MD [address] [place] [id number] PCP - General Internal Medicine 03/28/20 documented as of this encounter
--- OUTSIDE RECORDS SUMMARY | 2024-11-24 16:10 | XMS_ITS | Encounter Summary ---
Author Organization [employer] Address 75 [facility] 7 [place] [address] Care Team Providers Care Retail Store Assistant Name Role Phone Minerva Gupta MD Primary Care Provider [phone] Reason for Visit * Reason Onset Date Comments FYI 06/13/2024 Encounter Details Date Type Department Care Team ([facility] st Contact Info) Description 06/13/2024 Telephone [facility] MED[facility] [address] [place] [address] Minerva Gupta MD [address] [place] [address] FYI Social History Tobacco Use Types Packs/Day [...] calling to inform pcp that Tigist from [facility] was able to send form to medical records regarding 2 bedroom apartment for him to fill out. If any questions you can contact pt at [phone] documented in this encounter Plan of Treatment Not on file documented as of this encounter Visit Diagnoses Not on filedocumented in this encounter Additional Health Concerns Assessment Noted Time PHQ-9 Depression Total Score: 0 10/16/20 23 2:20 PM EST documented as of this encounter Care Teams Retail Store Assistant Relationship Specialty Start Date End Date Minerva Gupta MD [address] [place] [phone] PCP - General Internal Medicine 03/28/20 documented as of this encounter
--- OUTSIDE RECORDS SUMMARY | 2024-11-24 16:10 | XMS_ITS | Clinical Summary ---
Author Organization [employer] Address [address] [place] [address] [address] [place] [address] Care Team Providers Care Coffee Supervisor Name Role Phone Minerva Gupta MD Primary Care Provider [phone] Allergies Active Allergy Reactions Criticality Noted Date [...] NOT THE GENERIC. 180 tablet 3 06/05/20 23 Active Blood Pressure kitIndications:E levated BP without diagnosis of hypertension To check the BP every other day 1 kit 10/16/20 23 Active Acetaminophen Extra Strength 500 MG tabletIndication s:Opioid dependence, uncomplicated (CMS/HCC) Take 500 mg by mouth every 8 (eight) hours if needed (Joint pain). 90 tablet 3 06/09/20 24 Active albuterol 108 (90 Base) MCG/ACT inhalerIndicatio [...] 6 tablet 11/02/19 25 Active predniSONE (Deltasone) 10 MG tabletIndication s:COPD exacerbation (CMS/HCC) Take by oral route daily. 6 tabs (=60mg) on day 1-2; 5 tabs (=50mg) on day 3-4; 4 tabs (=40mg) on day 5-6; 3 tabs (=30mg) on day 7-8; 2 tabs (=20mg) on day 9-10; 1 tab on day 11-12; 1/2 tab on day 13-14 43 tablet 11/23/19 25 Active Suboxone 8-[address] [...] cleanup (will not trigger notification to Pharmacy)) guaiFENesin (Mucinex) 600 MG 12 hr tablet [...] 5 days. 10 tablet 11/02/19 25 2024 predniSONE (Deltasone) 20 MG tabletIndication s:COPD exacerbation (CMS/HCC) Take 1 tablet (20 mg) by mouth 3 times daily for 3 days, THEN 1 tablet (20 mg) 2 times daily for 3 days, THEN 1 tablet (20 mg) Once per day for 3 days. 18 tablet 11/15/19 25 2024 Active Problems Problem Noted Date [...] symptoms. 11/15/24 COPD exacerbation 11/15/2024 Overview (11/15/2024): -CXR 11/15/24 No active pulmonary disease. - Prescribed predniSONE (Deltasone) 20 MG tablet 11/15/24 - ER precautions discussed. 11/15/24 - Seek medical attention for worsening symptoms. Assessment & Plan (11/15/2024 12:18 PM EST): -CXR 11/15/24 No active pulmonary disease. - Prescribed predniSONE (Deltasone) 20 MG tablet 11/15/24 - ER precautions discussed. 11/15/24 - Seek medical attention for worsening symptoms. Elevated blood pressure reading 12/10/2023 Assessment & [...] Encounters Date Type Department Care Team Description 11/23/2024 7:00 PM EST Office Visit [facility] [address] [place] [phone] William Mackenzie MD COPD exacerbation (CMS/HCC) (Primary Dx) 11/23/2024 Travel 11/15/2024 10:40 AM EST Office Visit [facility] [address] [place] [phone] Anastasia Worthington MD COPD exacerbation (CMS/HCC) (Primary Dx); Cough in adult patient 11/15/2024 Telephone [facility] [address] [place] [phone] Anastasia Worthington MD 11/08/2024 Telephone [facility] [address] [place] [address] Minerva Gupta MD Chart Prep 11/02/2024 4:20 PM EST Office Visit [facility] [address] [place] [phone] Komal Soares MD Acute bronchitis, unspecified organism (Primary Dx) 11/02/2024 Patient Outreach [facility] [address] [place] [address] Minerva Gupta MD Pre-visit Planning (SDOH was completed on 12/01/2023) 10/18/2024 11:40 AM EST Office Visit [facility] [address] [address] Columba Ward DO COVID-19 (Primary Dx) 10/18/2024 [...] the past 12 months, has t he [employer], gas, oil or water company threatened to [...] (150 lb) 11/23/2024 7:42 PM EST Height 160 cm (5' 3 ) [...] 60-74 years 1-dose series) 2023 COVID-19 Vaccine (2 - season) 2024 03/07/2021 Influenza Vaccine (#1) 2024 , 07/19/2013, 07/17/2009, Additional history exists Depression Screening 10/16/2024 10/16/2023, 10/16/20 23 SDOH Screening 12/01/2024 12/01/2023 Tobacco Screening 10/21/2025 10/21/2024 DTaP/Tdap/Td Vaccines (2 - Td or Tdap) 08/23/2031 08/23/2021, 01/24/2003, 10/26/2002 HIV Screening Completed 01/27/2023, 05/31/2021 Hepatitis C Screening Completed 01/27/2023, 021 Pneumococcal Vaccine: 50+ Years Completed 10/16/2023, 01/12/2006 HIB Vaccines Aged Out [...] Routine 11/23/2024 8:10 PM EST COPD exacerbation ([facility] XR CHEST 2 VIEWS Routine 11/15/2024 10:3 [...] Recently Relevant to Health Maintenance Results * (ABNORMAL) Respiratory Viral Panel PCR (11/23/2024 8:10 PM EST) Adenovirus PCR Not Detected Not Detect. [facility] Bordetella pertussis PCR Not Detected Not Detect. [facility] Comment:Interpret results wi th caution. If B. pertussis isspecifically suspected, additional testing using analternate method is recommended. Bordetella parapertussis PCR Not Detected Not Detect. [facility] Chlamydia pneumoniae PCR Not Detected Not Detect. [facility] Coronavirus 229E PCR Not Detected Not Detect. [facility] Coronavirus HKU1 PCR Not Detected Not Detect. [facility] Coronavirus NL63 PCR Not Detected Not Detect. [facility] Coronavirus OC43 PCR Not Detected Not Detect. [facility] SARS-CoV-2 PCR Not Detected Not Detect. [facility] Comment:SARS-CoV-2 not detec laverne by real-time RT-PCR.Note: If clinical suspicion for Sars-CoV-2 is high, continueto maintain precautions and consider repeat testing.Test results should be interpreted in the context ofclinical findings and other laboratory data.Rare polymorphisms exist that could lead to false-negativeor false-positive results. If results do not match theclinical findings, additional testing should be considered.Results reported to [facility].This test has been authorized by the FDA under the EmergencyUse Authorization (EUA) for use by authorized laboratories. Influenza A PCR Not Detected Not Detect. [facility] Influenza B PCR Not Detected Not Detect. [facility] Human metapneumovirus PCR Not Detected Not Detect. [facility] Rhino/Enterovirus PCR Detected(A) Not Detect. [facility] Mycoplasma pneumoniae PCR Not Detected Not Detect. [facility] Parainfluenza 1 PCR Not Detected Not Detect. [facility] Parainfluenza 2 PCR Not Detected Not Detect. [facility] Parainfluenza 3 PCR Not Detected Not Detect. [facility] Parainfluenza 4 PCR Not Detected Not Detect. [facility] RSV PCR Not Detected Not Detect. [facility] Resp Panel NA Note See Note H [facility] Comment:All results must be correlated [...] assay is performed by Multiplexed PCR, utilizing [employer] Array. Swab 11/23/2024 8:10 PM EST 11/24/2024 12:21 PM EST us William Mackenzie MD LAB BLOOD ORDERABLES Final Resul t [facility] [address] [place] [address] [phone] * XR Chest 2 Views (11/15/2024 10:35 AM EST) Only the most recent of2 resultswithin the time period is included. Anatomical Region Laterality Modality Chest Radiographic Fartun ging 11/15/2024 10:3 5 AM EST Narrative 11/15/2024 12:06 PM EST ?[facility] ?[address] ?[place] [address] ?XRay Report ? Signed ? Patient: Alyson Marcus ?MR#: [id number] ?? [id number] ? : 1965 ?Acct:[id number] ? Age/Sex: 59 / F ?ADM Date: 11/15/24 ? Loc: HO.HHCX ? Attending Dr: Anastasia Worthington MD ? Ordering Physician: Anastasia Worthington MD ?? Date of Service: 11/15/24 ?? Procedure(s): XR chest 2V ?? Accession Number(s): [id number] ? cc: Anastasia Worthington MD ? EXAMINATION: [...] DD/ 1035 ? TD/TT: 11/15/24 1050 ? Intensive Care Medicine Specialist: ? Procedure Note Alexy Kelsey - 11/15/2024 [facility] [address] [facility] [place] [address] XRay Report Signed Patient: Pham Marcus#: [id number] : 1965Acct:[id number] Age/Sex: 59 / FADM Date: 11/15/24 Loc: HO.HHCX Attending Dr: Anastasia Worthington MD Ordering Physician: Anastasia Worthington MD Date of Service: 11/15/24 Procedure(s): XR chest 2V Accession Number(s): [id number] cc: Anastasia Worthington MD EXAMINATION: XR CHEST [...] 11/15/24 1203 DD/ 1035 TD/TT: 11/15/24 1050 Intensive Care Medicine Specialist: Anastasia Worthington MD IMG XR PROCEDURES Edited R esult - Final * Influenza B (ID NOW Rapid Molecular) (11/15/2024 10:16 AM EST) Only the most recent of2 resultswithin the time period is included. Influenza B Negative Negative, Indeterminate [facility] Swab 11/15/2024 10:1 6 AM EST Anastasia Worthington MD POINT OF CARE TEST ENTER/E DIT ORDERABLES Final Result [facility] [address] [place] [phone] * Influenza A (ID NOW Rapid Molecular) (11/15/2024 10:16 AM EST) Only the most recent of2 resultswithin the time period is included. Influenza A Negative Negative, Indeterminate [facility] Swab 11/15/2024 10:1 6 AM EST us Anastasia Worthington MD POINT OF CARE TEST ENTER/E DIT ORDERABLES Final Result [facility] [address] [place] [phone] * POCT Rapid COVID Ag (11/15/2024 10:15 AM EST) Only the most recent of2 resultswithin the time period is included. Pathologist [facility] Rapid COVID Ag Negative Swab 11/15/2024 10:1 5 AM EST us Anastasia Worthington MD POINT OF CARE TEST ENTER/E DIT ORDERABLES Final Result * (ABNORMAL) Hepatitis Panel, General (01/27/2023 10:44 AM EDT) Pathologist [facility] Hepatitis A Antibody Total REACTIVE( A) NON-REACT ON24 [place] [facility] Comment: For additional information, please refer to http://education.MeriTaleem/faq/JIL909 (This link is being provided for informational/ educational purposes only.) Hepatitis B Surface Antibody QL NON-REACT MICHELLE NON-REACT MICHELLE [facility] [place] [facility] Hepatitis B Surface Ag NON-REACT MICHELLE NON-REACT MICHELLE [facility] [place] [facility] Hepatitis B Core Antibody Total NON-REACT MICHELLE NON-REACT MICHELLE [facility] [place] [facility] Hepatitis C Antibody NON-REACT MICHELLE NON-REACT MICHLELE [facility] Index <0.02 <1.00 [facility] [place] [facility] Comment: HCV antibody was non-reactive. There is no laboratory evidence of HCV infection. In most cases, no further action is required. However, if recent HCV exposure is suspected, a test for HCV RNA (test code 13622) is suggested. For additional information please refer to http://[employer].MeriTaleem/faq/PNV93o7 (This link is being provided for informational/ educational purposes only.) 01/27/2023 10:4 4 AM EDT 01/27/2023 10:46 AM EDT Minerva Gupta MD LAB BLOOD ORDERABLES Final Result Performing Organization Address [facility] Co de Phone Number [facility] [address] [place] [address], [place] [address] [facility] [place] [facility] [address] [place] [address] * HIV-1/2 Antigen and Antibodies, Fourth Generation, with Reflexes (01/27/2023 10:44 AM EDT) Pathologist [facility] HIV Antigen/Antibody, 4th Generation NON-REAC TIVE NON-REAC TIVE [facility] Comment: HIV-1 antigen and HIV-1/HIV-2 antibodies [...] ?? For additional information please refer to http://[employer].MeriTaleem/faq/ADH905 (This link is being provided for informational/ educational purposes only.) The performance of this assay has not been clinically validated in patients less than 2 years old. Blood Venous blood specimen / Unknown 01/27/2023 10:44 AM EDT 01/27/2023 10:46 AM EDT Minerva Gupta MD LAB BLOOD ORDERABLES Final Result Performing Organization Address [facility] Co de Phone Number [facility] [address] [place] [address], [facility] [place] [address] [facility] [address] [place] [phone] from Last 3 Months or Most Recently Relevant to Health Maintenance Insurance [facility] C3 DENTAL-[facility] MEDICAID STAND ADULT Care Teams Coffee Supervisor Relationship Specialty Start Date End Date Minerva Gupta MD [address] [place] [phone] PCP - General Internal Medicine 03/28/20
--- OUTSIDE RECORDS SUMMARY | 2024-11-24 16:10 | XMS_ITS | Encounter Summary ---
Author Organization [employer] Address [address] [facility] [address] [place] [address] Care Team Providers Care Convention Services Manager Name Role Phone Minerva Gupta MD Primary Care Provider [phone] Reason for Visit * Reason Comments Med Refill Encounter Details Date Type Department Care Team ([facility] st Contact Info) Description 03/18/2023 Refill [facility] [address] [place] [address] Minerva Gupta MD [address] [place] [phone] Social History Tobacco Use Types Packs/Day Years [...] documented as of this encounter Care Teams Convention Services Manager Relationship Specialty Start Date End Date Minerva Gupta MD [address] [place] [phone] PCP - General Internal Medicine 03/28/20 documented as of this encounter
== END 2024-11-23 12:21 | disposition home or self-care (01) ==
LOC: HO.HHCLNP 12:20
PROVIDERS: Visit Provider Family Medicine
DX: J44.1 Chronic obstructive pulmonary disease with (acute) exacerbation (principal)
CPT/HCPCS: 87633